=== PATIENT | male | born 1940 | race Caucasian/White ===

== ENCOUNTER 2017-09-10 11:47 | Inpatient (IN) | payer MEDICARE, OTHER ==
[2017-09-10] MEDS ORDERED: predniSONE 10 MG TAB PO PRN (14:13)
--- NOTE | 2017-09-10 15:02 | XR ---
EXAMINATION TYPE: XR chest 2V DATE OF EXAM: 09/10/2017 COMPARISON: 07/31/2016 HISTORY: Shortness of breath TECHNIQUE: Frontal and lateral views of the chest are obtained. FINDINGS: The heart is enlarged with mediastinal clips and midline sternotomy wires present. No foca l consolidation, pleural effusion or pneumothorax is appreciated. No pulmonary vascular congestion. R ight humeral rotator cuff repair anchors are seen. Mild degenerative changes of the thoracic spine ar e noted. IMPRESSION: No acute cardiopulmonary process.
[2017-09-10] MEDS: CARBIDOPA-LEVODOPA 25-100 MG 1 EACH TAB PO SCH ×2 (15:04→20:24)
[2017-09-10] MEDS ORDERED: IPRATROPIUM-ALBUTEROL 3 ML NEB INHALATION PRN (16:16)
[2017-09-10] MEDS ORDERED: Potassium Replacement Protocol 1 EACH MISC MISCELLANE PRN (16:17)
[2017-09-10 16:23] LABS: Glucose,Whole Blood 149 mg/dL (75-99)
[2017-09-10] MEDS ORDERED: FUROSEMIDE 10 MG/ML 4 ML VIAL IV STA (16:55)
--- NOTE | 2017-09-10 17:00 | P.HPIM ---
History of Present Illness H&P Date: 09/10/17 Chief Complaint: Shortness of breath Patient is a 77-year-old male with a known history of hypertension, diabetes type 2, Parkinson's disease with iovodopa pump, coronary artery disease with history of bypass graft 5 present in 1988, atrial fibrillation on anticoagulation with Coumadin INR level II.7 was initially presented to [facility] with complaints of worsening short of breath since last night. Patient also having chest discomfort. No associated radiation. No nausea vomiting. Patient is a poor historian due to underlying Parkinson's disease. Most of the history was taken from the medical records with bedside with his daughter. Patient apparently having this short of breath exertional for the past 2 months and was seen by Dr. Hilliard. Patient had stress test done 2 weeks ago which was normal as per his daughter. Pt. had chest x-ray at [facility] showed mild vascular congestion and a dose of IV Lasix was given. Patient was found to have elevated troponin level 2.8 and also bradycardia with heart rate in 40s. Patient was subsequently transferred to [facility] for further evaluation by cardiology. Currently patient denied any chest pain. Repeat troponin increased to 5.6 and cardiology has been notified. Patient's INR is therapeutic. No fever no chills. No recent illnesses. EKG showed atrial fibrillation. Nonspecific ST-T wave changes. Review of Systems Constitutional: Patient denies any fever or chills . No generalized weakness or weight loss. Abdomen: Patient denied nausea vomiting and diarrhea and abdominal pain. Cardiovascular: Patient does have chest discomfort and shortness of breath. No leg swelling. Respiratory: patient denied any cough is from production. No shortness of breath Neurologic: Patient denied any numbness or tingling headache. Musculoskeletal: Patient denies any complaints of joint swelling or deformity. Skin: Negative Psychiatric: Negative Endocrine: No heat or cold intolerance. No recent weight gain. Genitourinary: No dysuria or hematuria. All other 14 point ROS negative except the above Past Medical History Past Medical History: Atrial Fibrillation, Coronary Artery Disease (CAD), Cancer , CVA/TIA, Diabetes Mellitus, GERD/Reflux, Hypertension, Musculoskeletal Disorder, Neurologic Disorder, Osteoarthritis (OA), Skin Disorder, Sleep Apnea/ CPAP/BIPAP, Syncope Additional Past Medical History / Comment(s): Stress test 2 weeks ago negative, parkinson's disease with levadopa pump, NIDDM type II, "leaky" heart valve, recently having some difficulty with swallowing-ENT thought due to breathing difficulties-pt has had esophageal dilations in the past, SOB past couple months worse lately, TIA in 2003, skin cancer with multiple removals, AINSLEY with CPAP used in the past, diverticular disease, benign colon polyps, arthritis bilateral knees and hips, UTIs, syncopal episodes. History of Any Multi-Drug Resistant Organisms: None Reported Past Surgical History: Coronary Bypass/CABG, Heart Catheterization, Joint Replacement, Orthopedic Surgery Additional Past Surgical History / Comment(s): 5vessel bypass 1988 at [facility] in [place]; 2008 cardiac cath tx medically, bilateral knee replacements with L knee revision, bilateral rotator cuff repair, colonoscopy with benign polypectomy, EGD with dilation, bilateral cataract removal with lens implants. Past Anesthesia/Blood Transfusion Reactions: No Reported Reaction Smoking Status: Never smoker - Past Family History Father Family Medical History: Myocardial Infarction ([place]) Additional Family Medical History / Comment(s): FATHER PASSED AT 38 YR. Medications and Allergies Home Medications Medication Instructions Recorded Confirmed Type Aspirin 81 mg PO MOWEFR 05/04/14 09/10/17 History Entacapone [Comtan] 200 mg PO TID 05/04/14 09/10/17 History Isosorbide Mononitrate ER [Imdur] 30 mg PO QAM 05/04/14 09/10/17 History Ranitidine HCl [Zantac] 150 mg PO BID 05/04/14 09/10/17 History Warfarin [Coumadin] 5 mg PO HS 05/04/14 09/10/17 History metFORMIN HCL 1,000 mg PO BID 05/04/14 09/10/17 History Ubidecarenone [Co Q-10] 300 mg PO QAM 07/19/16 09/10/17 History Black Seed Oil 1 cap PO BID 09/10/17 09/10/17 History Carbidopa/Levodopa [Duopa 4.63 1 dose PEG/G-TUBE CONTINUOUS 09/10/17 09/10/17 History mg-20 mg/ml Susp] Cholecalciferol [Vitamin D3] 5,000 unit PO DAILY 09/10/17 09/10/17 History Donepezil [Aricept] 10 mg PO HS 09/10/17 09/10/17 History Lisinopril [Prinivil] 10 mg PO DAILY 09/10/17 09/10/17 History Loratadine [Claritin] 10 mg PO DAILY 09/10/17 09/10/17 History predniSONE 20 mg PO Q48H 09/10/17 09/10/17 History Allergies Allergy/AdvReac Type Severity Reaction Status Date / Time diphenhydramine HCl AdvReac Hallucinati Verified 09/10/17 14:14 [From Benadryl] ons Physical Exam Vitals: Vital Signs Temp Pulse Resp BP Pulse Ox 09/10/17 16:00 98.5 F 48 L 21 126/62 96 Intake and Output 09/10/17 09/10/17 09/10/17 06:59 14:59 22:59 Intake Total 0 Balance 0 Intake: Oral 0 Other: # Voids 0 Weight 89.494 kg Patient Weight 09/11/17 06:59 Weight 89.494 kg PHYSICAL EXAMINATION: Patient is lying in the bed comfortably, no acute distress, awake alert and oriented.. HEENT: Normocephalic. Neck is supple. Pupils reactive. Nostrils clear. Oral cavity is moist. Ears reveal no drainage. Neck reveals no JVD, carotid bruits, or thyromegaly. CHEST EXAMINATION: Trachea is central. Symmetrical expansion. Lung mayes clear to auscultation and percussion. Diminished air entry basally CARDIAC: Normal S1, S2 with no gallops. No murmurs . Irregularly irregular ABDOMEN: Soft. Bowel sounds normal. No organomegaly. No abdominal bruits. Pt. does have levodopa pump Extremities: 1+ edema. No clubbing or cyanosis Neurologically awake, alert, oriented x3 with well-coordinated movements. No focal deficits noted Skin: No rash or skin lesions. Psychiatric: Operative. Nonsuicidal Musculoskeletal: No joint swelling or deformity. Normal range of motion. Results Labs: Abnormal Lab Results - Last 24 Hours (Table) 09/10/17 09/10/17 Range/Units 15:12 16:22 POC Glucose (mg/dL) 149 H (75-99) mg/dL Troponin I 5.680 H* (0.000-0.034) ng/mL Thrombosis Risk Factor Assmnt - Choose All That Apply Any of the Below Risk Factors Present?: Yes Each Factor Represents 1 point: Acute CA, Obesity (BMI >25) Other Risk Factors: Yes Each Risk Factor Represents 2 Points: Malignancy Each Risk Factor Represents 3 Points: Age 75 years or older Other congenital or acquired thrombophilia - If yes, enter type in comment: No Thrombosis Risk Factor Assessment Total Risk Factor Score: 7 Thrombosis Risk Factor Assessment Level: High Risk Assessment and Plan Assessment: #1 acute non-ST elevated CA with elevated troponin level #2 worsening shortness of breath due to acute CHF. Ejection fraction unknown. Elevated BNP 3463 #3 atrial fibrillation on anticoagulation with Coumadin INR 2.7 #4 history of coronary artery disease status post coronary artery bypass graft in 1988 5 is #5 diabetes type 2 [id number] #6 hypertension 7#Parkinson's disease #8 osteoarthritis #9 artery for sleep apnea on CPAP. #10 history of TIA Plan: Patient will be continued on telemetry monitoring and cardiology has been consulted for elevated troponin level. Patient has recent stress test was negative as per his daughter. Patient will be given a dose of Lasix IV and continue with home medications. Serial EKGs and troponins. Continue the home medications and blood pressure and blood sugar management. Further recommendations as per cardiology evaluation. Prognosis is guarded with multiple medical problems and comorbid conditions. Time with Patient: Greater than 30
[2017-09-10] MEDS: ENTACAPONE 200 MG TAB PO SCH ×2 (17:08→20:28)
[2017-09-10] MEDS: metFORMIN 500 MG TAB PO SCH (17:09)
[2017-09-10] MEDS: INSULIN LISPRO (humaLOG) 300 UNIT/3 ML VIAL SQ SCH ×2 (17:09→21:37)
[2017-09-10 18:47] LABS: Basophils % (A) 0 %; CH 31.8; CHCM 33.8; Eosinophils % (A) 0 %; HCT 38.9 % (39.0-53.0); HDW 3.11; HGB 12.9 gm/dL (13.0-17.5); Luc # (Auto) 0.18; Luc % (Auto) 2; Lymphocytes # (A) 0.5 k/uL (1.0-4.8); Lymphocytes % (A) 6 %; MCH 31.5 pg (25.0-35.0); MCHC 33.2 g/dL (31.0-37.0); MCV 94.8 fL (80.0-100.0); Mean Platelet Volume 8.9; Monocytes # (A) 0.8 k/uL (0-1.0); Monocytes % (A) 8 %; Neutrophils # (A) 7.6 k/uL (1.3-7.7); Neutrophils % (A) 83 %; RBC 4.11 m/uL (4.30-5.90); RDW 15.3 % (11.5-15.5); WBC 9.1 k/uL (3.8-10.6); WBC (Perox) 9.51
[2017-09-10] MEDS ORDERED: HEPARIN SODIUM,PORCINE 5,000 UNIT/ML 1 ML VIAL IV PRN (18:54)
[2017-09-10] MEDS ORDERED: HEPARIN SODIUM,PORCINE 5,000 UNIT/ML 1 ML VIAL IV ONE (18:54)
[2017-09-10] MEDS ORDERED: HEPARIN SODIUM,PORCINE/D5W PMX 25,000 UNIT in DEXTROSE/WATER 1 500ML.BAG IV SCH (19:00)
[2017-09-10 19:24] LABS: INR 2.5 (<1.2); Prothrombin Time 24.5 sec (9.0-12.0)
[2017-09-10] MEDS: FUROSEMIDE 10 MG/ML 2 ML VIAL IV SCH (20:27)
[2017-09-10] MEDS: FAMOTIDINE 20 MG TAB PO SCH (20:28)
[2017-09-10] MEDS: DONEPEZIL 10 MG TAB PO SCH (20:28)
[2017-09-10] MEDS ORDERED: WARFARIN 5 MG TAB PO SCH (21:00)
[2017-09-10 21:09] LABS: Glucose,Whole Blood 143 mg/dL (75-99)
[2017-09-10 21:14] LABS: Hemoglobin A1C 6.8 % (4.2-6.1)
[2017-09-10] MEDS: IPRATROPIUM-ALBUTEROL 3 ML NEB INHALATION SCH (21:36)
[2017-09-11] MEDS ORDERED: TEMAZEPAM 7.5 MG CAP PO ONE (00:32)
[2017-09-11 06:12] LABS: Glucose,Whole Blood 199 mg/dL (75-99)
[2017-09-11 06:15] LABS: Anisocytosis Slight; Basophils % (A) 0 %; CH 32.5; CHCM 33.6; Eosinophils % (A) 0 %; HCT 45.4 % (39.0-53.0); HDW 2.99; HGB 14.5 gm/dL (13.0-17.5); Luc # (Auto) 0.19; Luc % (Auto) 2; Lymphocytes # (A) 1.3 k/uL (1.0-4.8); Lymphocytes % (A) 12 %; MCHC 31.8 g/dL (31.0-37.0); MCV 97.5 fL (80.0-100.0); Macrocytosis Slight; Mean Platelet Volume 9.2; Monocytes # (A) 0.7 k/uL (0-1.0); Monocytes % (A) 7 %; Neutrophils # (A) 8.2 k/uL (1.3-7.7); Neutrophils % (A) 79 %; RBC 4.66 m/uL (4.30-5.90); RDW 16.5 % (11.5-15.5); WBC 10.4 k/uL (3.8-10.6); WBC (Perox) 10.49
[2017-09-11 06:35] LABS: Anion Gap 14 mmol/L; Blood Urea Nitrogen 31 mg/dL (9-20); Calcium 9.4 mg/dL (8.4-10.2); Carbon Dioxide 18 mmol/L (22-30); Chloride 106 mmol/L (98-107); Glucose 194 mg/dL (74-99); Magnesium 1.5 mg/dL (1.6-2.3); Non-African American GFR(MDRD) >60 (>60 ml/min/1.73 sqM); Potassium 4.4 mmol/L (3.5-5.1); Sodium 138 mmol/L (137-145)
[2017-09-11 06:45] LABS: INR 2.2 (<1.2); Prothrombin Time 21.2 sec (9.0-12.0)
[2017-09-11] MEDS: INSULIN LISPRO (humaLOG) 300 UNIT/3 ML VIAL SQ SCH ×4 (07:07→21:13)
[2017-09-11] MEDS: CARBIDOPA-LEVODOPA 25-100 MG 1 EACH TAB PO SCH ×3 (07:46→20:37)
[2017-09-11] MEDS: metFORMIN 500 MG TAB PO SCH (07:47)
[2017-09-11] MEDS: FUROSEMIDE 10 MG/ML 2 ML VIAL IV SCH ×2 (08:02→20:29)
[2017-09-11] MEDS: ASPIRIN 81 MG PO SCH (08:02)
[2017-09-11] MEDS: FAMOTIDINE 20 MG TAB PO SCH ×2 (08:02→20:29)
[2017-09-11] MEDS: ISOSORBIDE MONONITRATE ER 30 MG TAB.ER.24H PO SCH (08:02)
[2017-09-11] MEDS: ENTACAPONE 200 MG TAB PO SCH ×3 (08:02→20:30)
[2017-09-11] MEDS: LISINOPRIL 10 MG TAB PO SCH (08:03)
[2017-09-11] MEDS: IPRATROPIUM-ALBUTEROL 3 ML NEB INHALATION SCH ×4 (09:03→19:09)
--- NOTE | 2017-09-11 09:59 | P.CRDCN ---
History of Present Illness Consult date: 09/11/17 Requesting physician: Rachid Parks Reason for Consult (text): nstemi Consult reason: shortness of breath Chief complaint: Worsening shortness of breath and chest pressure History of present illness: This is a pleasant 77-year-old gentleman who follows with Dr. Hilliard in the office. He has a known history of coronary artery disease with prior bypass surgery, hypertension, hyperlipidemia, diabetes, Parkinson's. Most recent heart catheterization was performed in 2008 which revealed a patent DYKES to the LAD, SVG to the RCA, OM, RI. History also of chronic persistent atrial fibrillation, on Eliquis for anticoagulation. Patient was transferred here from [facility]. History was obtained from the patient as well as his daughter and who are at bedside. Apparently the patient has been complaining of shortness of breath since June, in June it was initially exertional shortness of breath, since then it has progressively worsened, patient also has been experiencing chest heaviness and pressure. Patient did go to see Dr. Hilliard in the office in July because of these symptoms, an echocardiogram with Doppler study was performed which revealed normal left ventricular size and function with mild aortic regurg and moderate aortic stenosis. Patient also underwent a stress test which was reported to be inconclusive as a baseline EKG abnormalities. Ischemic cardiomyopathy with mild to moderate LV systolic dysfunction secondary to prior inferior wall SC. No documentation of reversible ischemia. Patient presented to [facility] on this occasion, because of persistence in worsening shortness of breath with associated chest pressure and heaviness with radiation to the jaw. Positive PND and orthopnea. EKG performed on arrival there showed atrial flutter with ST depression in the anterior leads. Chest x-ray performed there revealed cardiomegaly. Mild pulmonary vascular congestion with mild bilateral peripheral pulmonary edema. Density is identified at the lung bases most likely reflecting atelectasis and small pleural effusions. TSH 1.072 troponin at [place] 2.8 free T4 1 0.0 sodium 136, potassium 4.6, BUN 31, creatinine 1.1. INR 2.7 d-dimer 0.35 WBC 11.2, hemoglobin 13.5, platelet count 177. Patient was transferred [facility] for [facility] care. His EKG on arrival here showed atrial flutter with significant ST depression in the anterior lateral leads. EKG repeated this morning persists to show ST depression. Blood pressure 136/70 with a heart rate in the 50s. Hemoglobin 14.5, white blood cell count 10.4, platelet count 183. INR 2.2. Potassium 4.4, BUN 31, creatinine 1.1. He needs a level I.5. Troponins 5.6 and 7.5. Chest x-ray repeated here did not reveal any acute cardiopulmonary process. At the time of my examination this morning, patient is currently chest pain-free. Past Medical History Past Medical History: Atrial Fibrillation, Coronary Artery Disease (CAD), Cancer , CVA/TIA, Diabetes Mellitus, GERD/Reflux, Hypertension, Musculoskeletal Disorder, Neurologic Disorder, Osteoarthritis (OA), Skin Disorder, Sleep Apnea/ CPAP/BIPAP, Syncope Additional Past Medical History / Comment(s): Stress test 2 weeks ago negative, parkinson's disease with levadopa pump, NIDDM type II, "leaky" heart valve, recently having some difficulty with swallowing-ENT thought due to breathing difficulties-pt has had esophageal dilations in the past, SOB past couple months worse lately, TIA in 2003, skin cancer with multiple removals, AINSLEY with CPAP used in the past, diverticular disease, benign colon polyps, arthritis bilateral knees and hips, UTIs, syncopal episodes. History of Any Multi-Drug Resistant Organisms: None Reported Past Surgical History: Coronary Bypass/CABG, Heart Catheterization, Joint Replacement, Orthopedic Surgery Additional Past Surgical History / Comment(s): 5vessel bypass 1988 at [facility] in [place]; 2008 cardiac cath tx medically, bilateral knee replacements with L knee revision, bilateral rotator cuff repair, colonoscopy with benign polypectomy, EGD with dilation, bilateral cataract removal with lens implants. Past Anesthesia/Blood Transfusion Reactions: No Reported Reaction Smoking Status: Never smoker - Past Family History Father Family Medical History: Myocardial Infarction ([place]) Additional Family Medical History / Comment(s): FATHER PASSED AT 38 YR. Medications and Allergies Home Medications Medication Instructions Recorded Confirmed Type Aspirin 81 mg PO MOWEFR 05/04/14 09/10/17 History Entacapone [Comtan] 200 mg PO TID 05/04/14 09/10/17 History Isosorbide Mononitrate ER [Imdur] 30 mg PO QAM 05/04/14 09/10/17 History Ranitidine HCl [Zantac] 150 mg PO BID 05/04/14 09/10/17 History Warfarin [Coumadin] 5 mg PO HS 05/04/14 09/10/17 History metFORMIN HCL 1,000 mg PO BID 05/04/14 09/10/17 History Ubidecarenone [Co Q-10] 300 mg PO QAM 07/19/16 09/10/17 History Black Seed Oil 1 cap PO BID 09/10/17 09/10/17 History Carbidopa/Levodopa [Duopa 4.63 1 dose PEG/G-TUBE CONTINUOUS 09/10/17 09/10/17 History mg-20 mg/ml Susp] Cholecalciferol [Vitamin D3] 5,000 unit PO DAILY 09/10/17 09/10/17 History Donepezil [Aricept] 10 mg PO HS 09/10/17 09/10/17 History Lisinopril [Prinivil] 10 mg PO DAILY 09/10/17 09/10/17 History Loratadine [Claritin] 10 mg PO DAILY 09/10/17 09/10/17 History predniSONE 20 mg PO Q48H 09/10/17 09/10/17 History Allergies Allergy/AdvReac Type Severity Reaction Status Date / Time diphenhydramine HCl AdvReac Hallucinati Verified 09/10/17 14:14 [From Fay] ons Physical Exam Vitals: Vital Signs Temp Pulse Pulse Resp BP Pulse Ox 09/11/17 04:00 97.3 F L 57 L 19 136/84 95 09/11/17 00:00 97.1 F L 56 L 18 177/81 98 09/10/17 21:46 49 L 09/10/17 21:36 49 L 09/10/17 20:00 97.3 F L 46 L 19 136/71 98 09/10/17 16:00 98.5 F 48 L 21 126/62 96 Intake and Output 09/10/17 09/11/17 09/11/17 22:59 06:59 14:59 Other: Voiding Method Diaper Diaper Incontinent Incontinent # Voids 1 2 Weight 92 kg PHYSICAL EXAMINATION: HEENT: Head is atraumatic, normocephalic. Pupils equal, round. Neck is supple. There elevated jugular venous pressure. HEART EXAMINATION: Heart S1 and S2 irregularly irregular a systolic murmur is heard CHEST EXAMINATION: Lungs reveal rales to amari bases. ABDOMEN: Soft, nontender. Bowel sounds are heard. No organomegaly noted. EXTREMITIES: 2+ peripheral pulses with trace evidence of peripheral edema and no calf tenderness noted. NEUROLOGIC patient is awake, alert and oriented -3. . Results 09/11/17 05:48 09/11/17 05:48 Cardiac Enzymes 09/10/17 09/10/17 Range/Units 15:12 21:10 Troponin I 5.680 H* 7.550 H* (0.000-0.034) ng/mL Coagulation 09/10/17 09/11/17 Range/Units 15:12 05:48 PT 24.5 H 21.2 H (9.0-12.0) sec APTT 35.0 H (22.0-30.0) sec CBC 09/10/17 09/11/17 Range/Units 15:12 05:48 WBC 9.1 10.4 (3.8-10.6) k/uL RBC 4.11 L 4.66 (4.30-5.90) m/uL Hgb 12.9 L 14.5 (13.0-17.5) gm/dL Hct 38.9 L 45.4 (39.0-53.0) % Plt Count 182 183 (150-450) k/uL Comprehensive Metabolic Panel 09/11/17 Range/Units 05:48 Sodium 138 (137-145) mmol/L Potassium 4.4 (3.5-5.1) mmol/L Chloride 106 (98-107) mmol/L Carbon Dioxide 18 L (22-30) mmol/L BUN 31 H (9-20) mg/dL Creatinine 1.10 (0.66-1.25) mg/dL Glucose 194 H (74-99) mg/dL Calcium 9.4 (8.4-10.2) mg/dL Current Medications Generic Name Dose Route Start Last Admin Trade Name Freq PRN Reason Stop Dose Admin Albuterol/Ipratropium 3 ml 09/10/17 20:00 09/11/17 09:03 Duoneb 0.5 Mg-3 Mg/3 Ml Soln INHALATION Not Given RT-QID TERE Albuterol/Ipratropium 3 ml 09/10/17 16:16 Duoneb 0.5 Mg-3 Mg/3 Ml Soln INHALATION RT-Q2H PRN Shortness Of Breath Or Wheezing Aspirin 81 mg 09/11/17 09:00 09/11/17 08:02 Aspirin PO 81 mg MOWEFR TERE Administration Carbidopa/Levodopa 2 each 09/10/17 16:00 09/11/17 07:46 Sinemet 25-100 PO Not Given TID TERE Donepezil HCl 10 mg 09/10/17 21:00 09/10/17 20:28 Aricept PO 10 mg HS TERE Administration Entacapone 200 mg 09/10/17 16:00 09/11/17 08:02 Comtan PO 200 mg TID TERE Administration Famotidine 20 mg 09/10/17 21:00 09/11/17 08:02 Pepcid PO 20 mg BID TERE Administration Furosemide 20 mg 09/10/17 21:00 09/11/17 08:02 Lasix IV 20 mg Q12HR TERE Administration Insulin Human Lispro 0 unit 09/10/17 17:30 09/11/17 07:07 Humalog SQ 2 unit ACHS TERE Administration Protocol Isosorbide Mononitrate 30 mg 09/11/17 09:00 09/11/17 08:02 Imdur PO 30 mg QAM TERE Administration Lisinopril 10 mg 09/11/17 09:00 09/11/17 08:03 Zestril PO 10 mg DAILY TERE Administration Metformin HCl 1,000 mg 09/10/17 17:30 09/11/17 07:47 Glucophage PO Not Given AC-BID TERE Miscellaneous Information 1 each 09/10/17 16:17 Potassium Per Protocol MISCELLANE DAILY PRN Per Protocol Protocol Prednisone 10 mg 09/10/17 14:13 PO DAILY PRN flare up Intake and Output 09/10/17 09/11/17 09/11/17 22:59 06:59 14:59 Other: Voiding Method Diaper Diaper Incontinent Incontinent # Voids 1 2 Weight 92 kg 09/11/17 05:48 09/11/17 05:48 EKG Interpretations (text) EKG shows atrial flutter with anterior lateral ST depression Assessment and Plan Plan: Assessment and plan #1 non-Q-wave myocardial infarction, troponins 2.7, 5.6, 7.5. EKG shows atrial fibrillation with anterior lateral ST depression right bundle branch block pattern #2 chronic persistent atrial fibrillation/flutter, on Coumadin for anticoagulation, INR 2.2. #3 known history of coronary artery disease with prior bypass surgery, patient did have a stress test performed one month ago in the office which did not reveal any evidence of reversible ischemia. Echocardiogram with Doppler study was also performed in June of this year which revealed a normal left ventricular systolic function with moderate concentric LVH moderate aortic stenosis. #4 hypertension #5 diabetes #6 hyperlipidemia #7 Parkinson's #8 hypomagnesemia, magnesium level I.5. #9 congestive heart failure, LV function was normal in June of this year, diastolic acute on chronic. #10 moderate aortic stenosis. Plan We will obtain a stat echocardiogram with Doppler study as well as a BNP level. Give the patient 20 mg of IV Lasix now. Hold the Coumadin. Continue aspirin , Imdur, lisinopril, patient has not been on a beta robert because of bradycardia. Patient was seen in consultation by Dr. VC Ramos and advised to undergo cardiac catheterization. The risks and benefits were explained to the patient in detail and he is willing to proceed DNP note has been reviewed, I agree with a documented findings and plan of care. Patient was seen and examined.
[2017-09-11] MEDS ORDERED: ALPRAZolam 0.5 MG TAB PO PRN (10:03)
[2017-09-11] MEDS ORDERED: ASPIRIN 325 MG TAB PO STA (10:03)
[2017-09-11] MEDS ORDERED: SODIUM CHLORIDE 0.9% 1,000 ML in EMPTY BAG 1 BAG IV ONE (10:03)
[2017-09-11] MEDS ORDERED: ALPRAZolam 0.25 MG TAB PO PRN (10:03)
[2017-09-11] MEDS ORDERED: NITROGLYCERIN SL TABS 0.4 MG TAB SUBLINGUAL PRN ×2 (10:03→12:58)
[2017-09-11] MEDS ORDERED: ATORVASTATIN 80 MG TAB PO STA (10:07)
[2017-09-11] MEDS ORDERED: MIDAZOLAM 2 MG/2 ML VIAL ONE (11:01)
[2017-09-11] MEDS ORDERED: LIDOCAINE 2% INJ 20 MG/ML SQ ONE (11:07)
[2017-09-11] MEDS ORDERED: IV FLUID CONTINUATION 700 ML IV ONE (11:08)
[2017-09-11] MEDS ORDERED: BIVALIRUDIN BOLUS 250 MG/50 ML IV ONE (11:47)
[2017-09-11] MEDS ORDERED: BIVALIRUDIN 250 MG in SODIUM CHLORIDE 0.9% 40 ML IV ONE (11:48)
--- NOTE | 2017-09-11 12:17 | ECHOF ---
Referral Reason:assess lvf MEASUREMENTS -------- HEIGHT: 172.7 cm WEIGHT: 91.6 kg BP: 137/73 RVIDd: 3.7 cm (< 3.3) IVSd: 1.6 cm (0.6 - 1.1) LVIDd: 4.9 cm (3.9 - 5.3) LVPWd: 1.4 cm (0.6 - 1.1) IVSs: 1.9 cm LVIDs: 4.1 cm LVPWs: 2.1 cm LA Diam: 5.2 cm (2.7 - 3.8) LAESV Index (A-L): 38.69 ml/m Ao Diam: 3.7 cm (2.0 - 3.7) AV Cusp: 1.1 cm (1.5 - 2.6) MV EXCURSION: 12.842 mm (> 18.000) MV EF SLOPE: 72 mm/s (70 - 150) EPSS: 1.0 cm MV E Aamir: 1.24 m/s MV DecT: 176 ms MV A Aamir: 0.35 m/s MV E/A Ratio: 3.57 AV maxP.66 mmHg AV meanP.12 mmHg RAP: 5.00 mmHg RVSP: 58.20 mmHg FINDINGS -------- This was a technically adequate study. The left ventricular size is normal. There is moderate concentric left ventricular hypertrophy. Overall left ventricular systolic function is mildly impaired with, an EF between 45 - 50 %. Basal lateral LV wall motion is hypokinetic. Basal inferior LV wall motion is hypokinetic. The right ventricle is mildly enlarged. LA is moderately dilated 34-39 ml/m2 The right atrium is normal in size. 1.5mg of Definity was utilized for enhancement of images There is mild to moderate aortic valve sclerosis. Trace to mild aortic regurgitation. There is mild aortic stenosis present. Peak/mean gradient across the Aortic Valve is 27.66mmHg / 13.12mmHg. The mitral valve leaflets are mildly thickened. Mild mitral annular calcification present. Mild mitral regurgitation is present. Mild tricuspid regurgitation present. There is severe pulmonary hypertension. The right ventricular systolic pressure, as measured by Doppler, is 58.20mmHg. Trace/mild (physiologic) pulmonic regurgitation. The aortic root is dilated measuring 3.7cm. There is a trivial pericardial effusion present. CONCLUSIONS -------- 1. This was a technically adequate study. 2. 1.5mg of Definity was utilized for enhancement of images 3. There is mild to moderate aortic valve sclerosis. 4. Trace to mild aortic regurgitation. 5. There is mild aortic stenosis present. 6. Peak/mean gradient across the Aortic Valve is 27.66mmHg / 13.12mmHg. 7. The mitral valve leaflets are mildly thickened. 8. Mild mitral annular calcification present. 9. Mild mitral regurgitation is present. 10. Mild tricuspid regurgitation present. 11. There is severe pulmonary hypertension. 12. The left ventricular size is normal. 13. The right ventricular systolic pressure, as measured by Doppler, is 58.20mmHg. 14. Trace/mild (physiologic) pulmonic regurgitation. 15. The aortic root is dilated measuring 3.7cm. 16. There is a trivial pericardial effusion present. 17. There is moderate concentric left ventricular hypertrophy. 18. Overall left ventricular systolic function is mildly impaired with, an EF between 45 - 50 %. 19. Basal lateral LV wall motion is hypokinetic. 20. Basal inferior LV wall motion is hypokinetic. 21. The right ventricle is mildly enlarged. 22. LA is moderately dilated 34-39 ml/m2 23. The right atrium is normal in size. PSYCHOMETRICIAN: Josefa Santiago RDCS
[2017-09-11] MEDS ORDERED: niCARdipine 25 MG/10 ML VIAL ONE (12:19)
[2017-09-11] MEDS: niCARdipine Syringe (1,000 mcg/10 mL) INTRACORON ONE ×2 (12:22→12:30)
[2017-09-11] MEDS ORDERED: CLOPIDOGREL 75 MG TAB ONE ×2 (12:25→12:26)
[2017-09-11] MEDS ORDERED: CLOPIDOGREL 75 MG TAB PO ONE (12:29)
[2017-09-11] MEDS ORDERED: IOHEXOL 350 MG/ML 125ML BOTTLE INJ ONE (12:37)
--- NOTE | 2017-09-11 12:43 | CC ---
CARDIAC CATHETERIZATION REPORT INDICATION: [id number] elevation [place]. PROCEDURE NOTE: After obtaining informed consent, left heart catheterization, coronary angiogram and selective injection of the bypass graft was performed via the right femoral artery using standard Lala catheters. The patient has complex multiple medical problems including chronic atrial flutter and is on Coumadin. INR on admission was 2.2. However we decided to proceed with cardiac catheterization given the worsening troponins and congestive heart failure. The patient and the family understood the risk of bleeding. The patient has parkinsonism too. He has known CAD and DYKES to LAD, venous graft to right, OM and ramus intermedius. FINDINGS: 1. HEMODYNAMICS: Left ventricular end-diastolic pressure is 14 to 16 mm. There is no significant gradient across the aortic valve. 2. LEFT VENTRICULOGRAM: Left ventriculogram is not performed. 3. ANGIOGRAPHIC DATA:. 4. Left main coronary artery: Left main coronary artery appears totally occluded at its origin. Right coronary artery is totally occluded in the proximal part. SELECTIVE INJECTION OF THE BYPASS GRAFT 1. DYKES to LAD: DYKES was injected subselectively. It is patent. Proximal and distal anastomotic sites appear patent and the [place] vessel has mild disease. 2. Venous graft to the right coronary artery appears patent. Proximal and distal anastomotic sites are free of disease. The body of the graft appears diffusely diseased but no focal stenotic areas. The PDA and PLV appear patent and are giving collaterals probably to diagonal system. 3. Venous graft to the ramus intermedius is patent. There is a 95% stenosis proximally. 4. Venous graft to the OM branch is totally occluded in the proximal part. CONCLUSIONS: 1. [place] 3-vessel coronary artery disease with occluded left main. 2. Patent DYKES to the LAD. 3. Patent DYKES to the RCA. 4. Acutely occluded venous graft to the OM. 5. Patent venous graft to the ramus with a 95% focal stenosis. PLAN: Angiographic data was reviewed by Dr. Alberta Valdovinos, the on-call elevator constructor helper, who will first attempt angioplasty of the occluded venous graft and the angioplasty of the venous graft to the ramus. MMODL / IJN: [id number] /
[2017-09-11] MEDS ORDERED: ATROPINE SULFATE 0.1 MG/ML 10ML SYRINGE IV PRN (12:58)
[2017-09-11] MEDS ORDERED: RX INFO: IV CONTRAST WAS GIVEN 1 EACH MISC MISCELLANE PRN (12:58)
[2017-09-11] MEDS ORDERED: MAG HYDROX/AL HYDROX/SIMETH 30 ML CUP PO PRN (12:58)
[2017-09-11] MEDS ORDERED: CARBIDOPA PEG/G-TUBE SCH (13:00)
[2017-09-11] MEDS ORDERED: LEVODOPA PEG/G-TUBE SCH (13:00)
--- NOTE | 2017-09-11 14:34 | PN ---
PROGRESS NOTE Mr. Russell is in atrial fibrillation. The ventricular rate is quite slow. He has a rate sometimes in the mid 40s, but he is not symptomatic and previously Dr. Hilliard discussed with him regarding a pacemaker and he was reluctant to have any. He is not symptomatic, but given his significant bradycardia. I am recommended that he should not be on any beta blockers, even though he has had CAD. His LV function is fairly well preserved. We will therefore not give him any beta blockers in view of significant bradycardia with underlying atrial fibrillation and probable sick sinus syndrome. MMODL / IJN: [id number] /
--- NOTE | 2017-09-11 14:49 | PTCA ---
PERCUTANEOUSTRANS CORORONARY ANGIOGRAPHY DATE OF SERVICE: 09/11/2017. PROCEDURE: 1. PTCA of saphenous vein graft to the diagonal branch of LAD. 2. Stenting of saphenous vein graft to the obtuse marginal branch of circumflex. PERFORMED BY: Dr. Alicia Valdovinos. CLINICAL INFORMATION: Mrs. Prashant Russell is a 77-year-old gentleman with a known history of aortocoronary bypass surgery that was performed more than 25 years ago with a DYKES to LAD, vein graft to the RCA, obtuse marginal, and probably the diagonal/ramus branch. In 2008 these grafts were patent with moderate disease in the ramus graft. He was advised medical therapy. Did well, but came into the hospital with symptoms of chest discomfort and non-ST elevation [place]. Coronary angiography by Dr. Hilliard revealed the vein graft to the RCA, DYKES to LAD, was widely patent. The graft to the diagonal/ramus was totally occluded, seen as a stump and the graft to the obtuse marginal had a 99% stenosis with sluggish flow. He was advised intervention. I reviewed the angiograms and noted that the graft to the ramus was probably a chronic occlusion with significant collaterals coming from the RCA graft. However, I suggested that I would attempt this as well and then perform intervention of the vein graft to the obtuse marginal. With this explanation, I proceeded to perform the procedure. PROCEDURE NOTE: The existing 6-Sinhala introducer in the right femoral artery was used to perform the procedure. I used initially an ART 3.5 catheter and with this I was able to cannulate the vein graft to the diagonal/ramus. I advanced a Whisper wire and with some difficulty, I was able to cross the total occlusion and it went back into the diagonal branch. However, in spite of at least 3 or 4 inflations, I could not advance the balloon any more than a few cm beyond the total occlusion. It appears that this was a chronic total occlusion without much antegrade flow. This was therefore unsuccessful angioplasty and then I turned my attention to the vein graft to the obtuse marginal which was a significant lesion. I changed the guide catheter to a hockey-stick guide catheter and with this I cannulated the vein graft to the obtuse marginal. I used a filter wire, with the filter wire, which was somewhat bulky, I could not cross the lesion. The wire kept buckling back. After some attempts, I gave up and used a new Whisper wire. With this I crossed the lesion and without predilatation I went ahead and deployed an 8 mm long 3.25 caliber Xience stent at 14 atmospheres. Patient had mild jaw discomfort/chest discomfort, but no new EKG changes. He received Angiomax bolus and infusion as per protocol and 600 mg of Plavix was given. I then noted that the brisk flow was there, but there was a haziness in the area. I addressed this with a 3.5 caliber NC Trek balloon of 12 mm length and gave a 45 second inflation to the same area. The inflation was given at 13 atmospheres. Excellent angiographic result was achieved. I also gave some nicardipine intracoronary. The patient tolerated procedure well. Excellent angiographic result was achieved without complication. The sheath was taken out and an Angio-Seal device used to secure hemostasis. Excellent angiographic result without complication was noted. Results were discussed with the patient and family. Moderate conscious sedation was given with Versed and Benadryl combination for a total duration of 92 minutes. I expect the patient to be discharged in the next 48 hours. Results were discussed with the patient and family. The patient has underlying chronic atrial fibrillation. He is on Coumadin. He will be on aspirin, Plavix and Coumadin initially and we will then make adjustments as an outpatient. MMODL / IJN: [id number] /
[2017-09-11] MEDS: SODIUM CHLORIDE 0.9% 1,000 ML IV SCH ×2 (14:54→20:30)
[2017-09-11] MEDS: predniSONE 20 MG TAB PO SCH (14:54)
[2017-09-11 16:31] LABS: Glucose,Whole Blood 167 mg/dL (75-99)
[2017-09-11] MEDS: traMADol 50 MG TAB PO PRN (17:34)
[2017-09-11] MEDS: ATORVASTATIN 40 MG TAB PO SCH (20:29)
[2017-09-11] MEDS: DONEPEZIL 10 MG TAB PO SCH (20:29)
[2017-09-11 21:10] LABS: Glucose,Whole Blood 227 mg/dL (75-99)
--- NOTE | 2017-09-12 00:14 | P.PN ---
Subjective Progress Note Date: 09/11/17 Principal diagnosis: Shortness of breath Patient is a 77-year-old male with a known history of hypertension, diabetes type 2, Parkinson's disease with iovodopa pump, coronary artery disease with history of bypass graft 5 present in 1988, atrial fibrillation on anticoagulation with Coumadin INR level II.7 was initially presented to [facility] with complaints of worsening short of breath since last night. Patient also having chest discomfort. No associated radiation. No nausea vomiting. Patient is a poor historian due to underlying Parkinson's disease. Most of the history was taken from the medical records with bedside with his daughter. Patient apparently having this short of breath exertional for the past 2 months and was seen by Dr. Hilliard. Patient had stress test done 2 weeks ago which was normal as per his daughter. Pt. had chest x-ray at [facility] showed mild vascular congestion and a dose of IV Lasix was given. Patient was found to have elevated troponin level 2.8 and also bradycardia with heart rate in 40s. Patient was subsequently transferred to [facility] for further evaluation by cardiology. Currently patient denied any chest pain. Repeat troponin increased to 5.6 and cardiology has been notified. Patient's INR is therapeutic. No fever no chills. No recent illnesses. EKG showed atrial fibrillation. Nonspecific ST-T wave changes. 09/11/2017 Patient underwent cardiac catheterization and stenting of saphenous vein graft. Patient currently denied any chest pain. Patient is bradycardic. Beta blockers were not started due to bradycardia. No complaints of worsening short of breath. Current medications reviewed. Objective - Vital Signs Vital signs: Vital Signs Temp 98.5 F 09/11/17 16:00 Pulse 55 L 09/11/17 19:19 Resp 20 09/11/17 16:43 BP 149/68 09/11/17 16:43 Pulse Ox 98 09/11/17 16:43 Intake & Output 09/11/17 09/11/17 09/12/17 06:59 18:59 06:59 Intake Total 90 Output Total 100 Balance -10 Weight 92 kg Intake: IV 90 Output: Urine 100 Other: Voiding Method Diaper Diaper Incontinent Incontinent # Voids 2 1 # Bowel Movements 1 - Exam Patient is lying in the bed comfortably, no acute distress, awake alert and oriented.. HEENT: Normocephalic. Neck is supple. Pupils reactive. Nostrils clear. Oral cavity is moist. Ears reveal no drainage. Neck reveals no JVD, carotid bruits, or thyromegaly. CHEST EXAMINATION: Trachea is central. Symmetrical expansion. Lung mayes clear to auscultation and percussion. Diminished air entry basally CARDIAC: Normal S1, S2 with no gallops. No murmurs . Irregularly irregular ABDOMEN: Soft. Bowel sounds normal. No organomegaly. No abdominal bruits. Pt. does have levodopa pump Extremities: 1+ edema. No clubbing or cyanosis Neurologically awake, alert, oriented x3 with well-coordinated movements. No focal deficits noted Skin: No rash or skin lesions. Psychiatric: Operative. Nonsuicidal Musculoskeletal: No joint swelling or deformity. Normal range of motion. - Labs CBC & Chem 7: 09/11/17 05:48 09/11/17 05:48 Labs: Abnormal Lab Results - Last 24 Hours (Table) 09/10/17 09/11/17 09/11/17 Range/Units 21:10 05:48 05:48 RDW 16.5 H (11.5-15.5) % Neutrophils # 8.2 H (1.3-7.7) k/uL PT (9.0-12.0) sec INR (<1.2) Carbon Dioxide 18 L (22-30) mmol/L BUN 31 H (9-20) mg/dL Glucose 194 H (74-99) mg/dL POC Glucose (mg/dL) (75-99) mg/dL Magnesium 1.5 L (1.6-2.3) mg/dL Troponin I 7.550 H* (0.000-0.034) ng/mL 09/11/17 09/11/17 09/11/17 Range/Units 05:48 06:11 16:25 RDW (11.5-15.5) % Neutrophils # (1.3-7.7) k/uL PT 21.2 H (9.0-12.0) sec INR 2.2 H (<1.2) Carbon Dioxide (22-30) mmol/L BUN (9-20) mg/dL Glucose (74-99) mg/dL POC Glucose (mg/dL) 199 H 167 H (75-99) mg/dL Magnesium (1.6-2.3) mg/dL Troponin I (0.000-0.034) ng/mL 09/11/17 Range/Units 21:06 RDW (11.5-15.5) % Neutrophils # (1.3-7.7) k/uL PT (9.0-12.0) sec INR (<1.2) Carbon Dioxide (22-30) mmol/L BUN (9-20) mg/dL Glucose (74-99) mg/dL POC Glucose (mg/dL) 227 H (75-99) mg/dL Magnesium (1.6-2.3) mg/dL Troponin I (0.000-0.034) ng/mL Assessment and Plan Assessment: #1 acute non-ST elevated [place] with elevated troponin level #2 worsening shortness of breath due to acute CHF. Ejection fraction preserved. Likely due to acute SC. Elevated BNP 3463 #3 atrial fibrillation on anticoagulation with Coumadin INR 2.7 #4 history of coronary artery disease status post coronary artery bypass graft in 1988 5 is #5 diabetes type 2 [id number] #6 hypertension 7#Parkinson's disease #8 osteoarthritis #9 artery for sleep apnea on CPAP. #10 history of TIA #11 bradycardia is symptomatic. Possible underlying sick sinus Plan: Patient will be continued on aspirin and Plavix and lisinopril. No beta blockers due to bradycardia. Continue with statins. We will change Lasix to by mouth. Will monitor renal function tomorrow. Cardiology is following. Continue with insulin for blood sugar management. Further recommendations as per cardiology evaluation. Prognosis is guarded with multiple medical problems and comorbid conditions. Time with Patient: Greater than 30
[2017-09-12 06:13] LABS: Glucose,Whole Blood 161 mg/dL (75-99)
[2017-09-12] MEDS: INSULIN LISPRO (humaLOG) 300 UNIT/3 ML VIAL SQ SCH ×4 (06:32→21:44)
[2017-09-12 06:40] LABS: Basophils % (A) 0 %; CH 31.4; CHCM 32.8; Eosinophils # (A) 0.1 k/uL (0-0.7); Eosinophils % (A) 1 %; HCT 41.2 % (39.0-53.0); HDW 3.09; HGB 13.2 gm/dL (13.0-17.5); Luc # (Auto) 0.17; Luc % (Auto) 2; Lymphocytes # (A) 1.5 k/uL (1.0-4.8); Lymphocytes % (A) 17 %; MCH 30.9 pg (25.0-35.0); MCHC 32.1 g/dL (31.0-37.0); MCV 96.2 fL (80.0-100.0); Mean Platelet Volume 8.3; Monocytes # (A) 0.6 k/uL (0-1.0); Monocytes % (A) 7 %; Neutrophils # (A) 6.4 k/uL (1.3-7.7); Neutrophils % (A) 73 %; RBC 4.28 m/uL (4.30-5.90); RDW 15.3 % (11.5-15.5); WBC 8.8 k/uL (3.8-10.6); WBC (Perox) 8.35
[2017-09-12 06:47] LABS: INR 1.8 (<1.2); Prothrombin Time 17.2 sec (9.0-12.0)
[2017-09-12 07:12] LABS: Anion Gap 11 mmol/L; Blood Urea Nitrogen 35 mg/dL (9-20); Calcium 8.8 mg/dL (8.4-10.2); Carbon Dioxide 24 mmol/L (22-30); Chloride 104 mmol/L (98-107); Glucose 163 mg/dL (74-99); Non-African American GFR(MDRD) 57 (>60 ml/min/1.73 sqM); Potassium 4.3 mmol/L (3.5-5.1); Sodium 139 mmol/L (137-145)
[2017-09-12] MEDS: IPRATROPIUM-ALBUTEROL 3 ML NEB INHALATION SCH ×4 (08:57→20:06)
[2017-09-12] MEDS ORDERED: NON-FORMULARY DRUG (Ubidecarenone [Co Q-10] 300 MG) PO SCH (09:00)
[2017-09-12 10:05] VITALS: BMI 32.8
[2017-09-12] MEDS: CARBIDOPA-LEVODOPA 25-100 MG 1 EACH TAB PO SCH ×3 (10:27→21:44)
[2017-09-12] MEDS: ISOSORBIDE MONONITRATE ER 30 MG TAB.ER.24H PO SCH (10:38)
[2017-09-12] MEDS: CHOLECALCIFEROL 1,000 UNIT TAB PO SCH (10:38)
[2017-09-12] MEDS: ENTACAPONE 200 MG TAB PO SCH ×3 (10:38→21:44)
[2017-09-12] MEDS: LISINOPRIL 10 MG TAB PO SCH (10:38)
[2017-09-12] MEDS: LORATADINE 10 MG TAB PO SCH (10:38)
[2017-09-12] MEDS: FUROSEMIDE 10 MG/ML 2 ML VIAL IV SCH (10:38)
[2017-09-12] MEDS: FAMOTIDINE 20 MG TAB PO SCH (10:38)
[2017-09-12 11:53] LABS: Glucose,Whole Blood 266 mg/dL (75-99)
[2017-09-12] MEDS: CLOPIDOGREL 75 MG TAB PO SCH (12:49)
[2017-09-12 16:44] LABS: Glucose,Whole Blood 203 mg/dL (75-99)
--- NOTE | 2017-09-12 17:14 | PN ---
PROGRESS NOTE This patient came with a congestive cardiac failure and acute non ST-segment elevation myocardial infarction yesterday. The patient underwent a cardiac catheterization, and otherwise had a stent to the obtuse marginal branch. Patient is feeling better. He is not in acute respiratory distress. The patient's oxygen saturation is 94%. Blood pressure is 132/64 mmHg, heart rate is 50 per minute. Patient has underlying chronic atrial flutter. First and second heart sounds are normal. Lungs examination reveals bilateral rales in the lower one third of the lung mayes. Abdomen is soft. Patient's creatinine is 1.23. INR is 1.8. RECOMMENDATIONS: 1. This patient still has evidence of congestive cardiac failure. The patient has ischemic cardiomyopathy with inferior lateral hypokinesis. The ejection fraction is 35-40%. 2. Chronic atrial flutter. We will continue the patient on IV Lasix 40 mg q.12 hourly and repeat the chest x-ray tomorrow. 3. We will also check it out whether the patient is covered for Xarelto then we will keep the patient on Plavix and Xarelto. MMODL / IJN: [id number] /
[2017-09-12] MEDS: FUROSEMIDE 10 MG/ML 4 ML VIAL IV SCH (17:28)
[2017-09-12] MEDS: WARFARIN 5 MG TAB PO SCH (17:29)
[2017-09-12 21:27] LABS: Glucose,Whole Blood 241 mg/dL (75-99)
[2017-09-12] MEDS: ATORVASTATIN 40 MG TAB PO SCH (21:44)
[2017-09-12] MEDS: DONEPEZIL 10 MG TAB PO SCH (21:44)
--- NOTE | 2017-09-13 00:01 | P.PN ---
Subjective Progress Note Date: 09/12/17 Principal diagnosis: Shortness of breath Patient is a 77-year-old male with a known history of hypertension, diabetes type 2, Parkinson's disease with iovodopa pump, coronary artery disease with history of bypass graft 5 present in 1988, atrial fibrillation on anticoagulation with Coumadin INR level II.7 was initially presented to [facility] with complaints of worsening short of breath since last night. Patient also having chest discomfort. No associated radiation. No nausea vomiting. Patient is a poor historian due to underlying Parkinson's disease. Most of the history was taken from the medical records with bedside with his daughter. Patient apparently having this short of breath exertional for the past 2 months and was seen by Dr. Hilliard. Patient had stress test done 2 weeks ago which was normal as per his daughter. Pt. had chest x-ray at [facility] showed mild vascular congestion and a dose of IV Lasix was given. Patient was found to have elevated troponin level 2.8 and also bradycardia with heart rate in 40s. Patient was subsequently transferred to [facility] for further evaluation by cardiology. Currently patient denied any chest pain. Repeat troponin increased to 5.6 and cardiology has been notified. Patient's INR is therapeutic. No fever no chills. No recent illnesses. EKG showed atrial fibrillation. Nonspecific ST-T wave changes. 09/11/2017 Patient underwent cardiac catheterization and stenting of saphenous vein graft. Patient currently denied any chest pain. Patient is bradycardic. Beta blockers were not started due to bradycardia. No complaints of worsening short of breath. 09/12/2017 Patient is awake and oriented but could not provide any history today. No complaints of chest pain. No acute overnight issues. Current medications reviewed. Objective - Vital Signs Vital signs: Vital Signs Temp 98.2 F 09/12/17 08:00 Pulse 55 L 09/12/17 20:21 Resp 20 09/12/17 16:00 BP 101/57 09/12/17 16:00 Pulse Ox 95 09/12/17 16:00 Intake & Output 09/12/17 09/12/17 09/13/17 06:59 18:59 06:59 Intake Total 733 Output Total 2 100 Balance -2 633 Weight 98 kg 98 kg Intake: Oral 733 Output: Urine 2 100 Other: Voiding Method Diaper Diaper Incontinent Incontinent # Voids 4 - Exam Patient is lying in the bed comfortably, no acute distress, awake alert and oriented.. HEENT: Normocephalic. Neck is supple. Pupils reactive. Nostrils clear. Oral cavity is moist. Ears reveal no drainage. Neck reveals no JVD, carotid bruits, or thyromegaly. CHEST EXAMINATION: Trachea is central. Symmetrical expansion. Lung mayes clear to auscultation and percussion. Diminished air entry basally CARDIAC: Normal S1, S2 with no gallops. No murmurs . Irregularly irregular ABDOMEN: Soft. Bowel sounds normal. No organomegaly. No abdominal bruits. Pt. does have levodopa pump Extremities: 1+ edema. No clubbing or cyanosis Neurologically awake, alert, oriented x3 with well-coordinated movements. No focal deficits noted Skin: No rash or skin lesions. Psychiatric: Operative. Nonsuicidal Musculoskeletal: No joint swelling or deformity. Normal range of motion. - Labs CBC & Chem 7: 09/12/17 06:12 09/12/17 06:12 Labs: Abnormal Lab Results - Last 24 Hours (Table) 09/12/17 09/12/17 09/12/17 Range/Units 06:11 06:12 06:12 RBC 4.28 L (4.30-5.90) m/uL PT 17.2 H (9.0-12.0) sec INR 1.8 H (<1.2) BUN (9-20) mg/dL Glucose (74-99) mg/dL POC Glucose (mg/dL) 161 H (75-99) mg/dL 09/12/17 09/12/17 09/12/17 Range/Units 06:12 11:44 16:41 RBC (4.30-5.90) m/uL PT (9.0-12.0) sec INR (<1.2) BUN 35 H (9-20) mg/dL Glucose 163 H (74-99) mg/dL POC Glucose (mg/dL) 266 H 203 H (75-99) mg/dL 09/12/17 Range/Units 21:19 RBC (4.30-5.90) m/uL PT (9.0-12.0) sec INR (<1.2) BUN (9-20) mg/dL Glucose (74-99) mg/dL POC Glucose (mg/dL) 241 H (75-99) mg/dL Assessment and Plan Assessment: #1 acute non-ST elevated [place] with elevated troponin level. Status post cardiac catheterization and stenting to saphenous vein graft. #2 worsening shortness of breath due to acute CHF. Ejection fraction preserved. Likely due to acute MD. Elevated BNP 3463 #3 atrial fibrillation on anticoagulation with Coumadin #4 history of coronary artery disease status post coronary artery bypass graft in 1988 5 is #5 diabetes type 2 [id number] #6 hypertension 7#Parkinson's disease #8 osteoarthritis #9 artery for sleep apnea on CPAP. #10 history of TIA #11 bradycardia is symptomatic. Possible underlying sick sinus Plan: Patient will be continued on aspirin and Plavix and lisinopril. No beta blockers due to bradycardia. Continue with statins. Lasix dose increased to 40 mg twice a day IV. Will monitor renal function tomorrow. Cardiology is following. Continue with insulin for blood sugar management. Further recommendations as per cardiology evaluation. Prognosis is guarded with multiple medical problems and comorbid conditions. Time with Patient: Greater than 30
[2017-09-13 06:11] LABS: Glucose,Whole Blood 168 mg/dL (75-99)
[2017-09-13 06:12] LABS: Basophils % (A) 0 %; CH 31.4; CHCM 32.6; Eosinophils # (A) 0.1 k/uL (0-0.7); Eosinophils % (A) 2 %; HCT 38.6 % (39.0-53.0); HGB 12.2 gm/dL (13.0-17.5); Luc # (Auto) 0.18; Luc % (Auto) 3; Lymphocytes # (A) 0.9 k/uL (1.0-4.8); Lymphocytes % (A) 15 %; MCH 30.6 pg (25.0-35.0); MCHC 31.6 g/dL (31.0-37.0); MCV 96.9 fL (80.0-100.0); Mean Platelet Volume 8.7; Monocytes # (A) 0.5 k/uL (0-1.0); Monocytes % (A) 9 %; Neutrophils # (A) 4.3 k/uL (1.3-7.7); Neutrophils % (A) 71 %; RBC 3.98 m/uL (4.30-5.90); RDW 15.3 % (11.5-15.5); WBC 6.1 k/uL (3.8-10.6); WBC (Perox) 6.05
[2017-09-13 06:24] LABS: Anion Gap 12 mmol/L; Blood Urea Nitrogen 44 mg/dL (9-20); Calcium 8.7 mg/dL (8.4-10.2); Carbon Dioxide 18 mmol/L (22-30); Chloride 107 mmol/L (98-107); Glucose 150 mg/dL (74-99); Non-African American GFR(MDRD) 59 (>60 ml/min/1.73 sqM); Sodium 137 mmol/L (137-145)
[2017-09-13] MEDS: INSULIN LISPRO (humaLOG) 300 UNIT/3 ML VIAL SQ SCH ×4 (06:26→21:10)
[2017-09-13] MEDS: FUROSEMIDE 10 MG/ML 4 ML VIAL IV SCH ×2 (06:26→17:18)
[2017-09-13] MEDS: CARBIDOPA-LEVODOPA 25-100 MG 1 EACH TAB PO SCH ×3 (09:15→21:03)
[2017-09-13] MEDS: CHOLECALCIFEROL 1,000 UNIT TAB PO SCH (09:17)
[2017-09-13] MEDS: LISINOPRIL 10 MG TAB PO SCH (09:17)
[2017-09-13] MEDS: LORATADINE 10 MG TAB PO SCH (09:17)
[2017-09-13] MEDS: CLOPIDOGREL 75 MG TAB PO SCH (09:17)
[2017-09-13] MEDS: ISOSORBIDE MONONITRATE ER 30 MG TAB.ER.24H PO SCH (09:17)
[2017-09-13] MEDS: FAMOTIDINE 20 MG TAB PO SCH (09:17)
[2017-09-13] MEDS: ASPIRIN 81 MG PO SCH (09:17)
[2017-09-13] MEDS: ENTACAPONE 200 MG TAB PO SCH ×3 (09:17→21:10)
[2017-09-13] MEDS: IPRATROPIUM-ALBUTEROL 3 ML NEB INHALATION SCH ×4 (09:29→20:44)
--- NOTE | 2017-09-13 11:28 | XR ---
EXAMINATION TYPE: XR chest 2V DATE OF EXAM: 09/13/2017 COMPARISON: 09/10/2017 TECHNIQUE: PA and lateral views submitted. HISTORY: Shortness of breath FINDINGS: Bilateral small effusion greater on the right subsegmental consolidation cardiomegaly, postoperative change and diffuse interstitial pattern. Arthropathy left shoulder and postsurgical change right reneeu ino IMPRESSION: 1. Correlate for CHF with small right effusion and tiny left pleural effusion.
[2017-09-13 12:03] LABS: Glucose,Whole Blood 220 mg/dL (75-99)
[2017-09-13] MEDS: predniSONE 20 MG TAB PO SCH (12:14)
--- NOTE | 2017-09-13 12:50 | P.DS ---
Providers Date of admission: 09/10/17 12:06 Expected date of discharge: 09/13/17 Attending physician: Rachid Parks Consults: 09/10/17 14:12 Consult Physician Stat Consulting Provider: Tracy Ramos Consult Reason/Comments: Jose Alfredo , a flutter, elevated trop. Do you want consulting provider notified?: Yes 09/11/17 12:58 Consult Physician Routine Consulting Provider: [facility] Consult Reason/Comments: Post Interventional patient Do you want consulting provider notified?: Already Contacted Primary care physician: Stated None Hospital Course: Final Diagnoses: #1 acute non-ST elevated MT with elevated troponin level. Status post cardiac catheterization and stenting to saphenous vein graft. #2 worsening shortness of breath due to acute CHF. Ejection fraction preserved. Likely due to acute MT. Elevated BNP 3463 #3 atrial fibrillation on anticoagulation with Coumadin #4 history of coronary artery disease status post coronary artery bypass graft in 1988 5 is #5 diabetes type 2 [id number] #6 hypertension 7#Parkinson's disease #8 osteoarthritis #9 artery for sleep apnea on CPAP. #10 history of TIA #11 bradycardia is symptomatic. Possible underlying sick sinus Hospital COurse:Patient is a 77-year-old male with a known history of hypertension, diabetes type 2, Parkinson's disease with iovodopa pump, coronary artery disease with history of bypass graft 5 present in 1988, atrial fibrillation on anticoagulation,underlying Parkinson's disease. Initially presented to [facility] with complaints of worsening short of breath since last night,chest discomfort. Stress test done 2 weeks ago which was normal as per his daughter. Pt. had chest x-ray at [facility] showed mild vascular congestion and a dose of IV Lasix was given. Patient was found to have elevated troponin level 2.8 and also bradycardia with heart rate in 40s. Patient was subsequently transferred to [facility] for further evaluation by cardiology. Repeat troponin increased to 5.6 and cardiology has been notified. EKG showed atrial fibrillation. Nonspecific ST-T wave changes. Underwent cardiac catheterization with stenting of the saphenous vein graft. Significant clinical improvement. Patient will be discharged to [facility] pending cardiology's final DC recommendations and clearance. Patient is being discharged in stable condition with guarded prognosis. The impression and plan of care has been dictated as directed. : I performed a history and examination of this patient, discussed the same with the dictator. I agree with the dictator's note ,documented as a scribe. Any additional findings or plans will be noted. Patient Condition at Discharge: Stable Plan - Discharge Summary New Discharge Prescriptions: New ALPRAZolam [Xanax] 0.25 mg PO Q6HR PRN #20 tab PRN Reason: Mild Anxiety Atorvastatin [Lipitor] 40 mg PO HS tab Carbidopa-Levodopa 25-100 mg [Sinemet 25-100 mg] 2 each PO TID tab Clopidogrel [Plavix] 75 mg PO DAILY tab Ipratropium-Albuterol Nebulize [Duoneb 0.5 mg-3 mg/3 ml Soln] 3 ml INHALATION RT-QID ampul.neb Ipratropium-Albuterol Nebulize [Duoneb 0.5 mg-3 mg/3 ml Soln] 3 ml INHALATION Q4H PRN ampul.neb PRN Reason: Shortness Of Breath Or Wheezing Mag Hydrox/Al Hydrox/Simeth [Maalox] 30 ml PO Q4HR PRN cup PRN Reason: Heartburn Nitroglycerin Sl Tabs [Nitrostat] 0.4 mg SUBLINGUAL Q5M PRN tab PRN Reason: Chest Pain traMADol HCl [Ultram] 50 mg PO Q6H PRN #20 tab PRN Reason: Pain INSULIN LISPRO (HumaLOG) [humaLOG] 0 unit SQ ACHS #1 vial Continue Ranitidine HCl [Zantac] 150 mg PO BID Warfarin [Coumadin] 5 mg PO HS Entacapone [Comtan] 200 mg PO TID metFORMIN HCL 1,000 mg PO BID Isosorbide Mononitrate ER [Imdur] 30 mg PO QAM predniSONE 20 mg PO Q48H Lisinopril [Prinivil] 10 mg PO DAILY Donepezil [Aricept] 10 mg PO HS Loratadine [Claritin] 10 mg PO DAILY Cholecalciferol [Vitamin D3] 5,000 unit PO DAILY Discontinued Aspirin 81 mg PO MOWEFR Ubidecarenone [Co Q-10] 300 mg PO QAM Black Seed Oil 1 cap PO BID Carbidopa/Levodopa [Duopa 4.63 mg-20 mg/ml Susp] 1 dose PEG/G-TUBE CONTINUOUS Discharge Medication List Entacapone [Comtan] 200 mg PO TID 06/10/14 [History] Isosorbide Mononitrate ER [Imdur] 30 mg PO QAM 05/04/14 [History] Ranitidine HCl [Zantac] 150 mg PO BID 05/04/14 [History] Warfarin [Coumadin] 5 mg PO HS 05/04/14 [History] metFORMIN HCL 1,000 mg PO BID 05/04/14 [History] Cholecalciferol [Vitamin D3] 5,000 unit PO DAILY 09/10/17 [History] Donepezil [Aricept] 10 mg PO HS 09/10/17 [History] Lisinopril [Prinivil] 10 mg PO DAILY 09/10/17 [History] Loratadine [Claritin] 10 mg PO DAILY 09/10/17 [History] predniSONE 20 mg PO Q48H 09/10/17 [History] ALPRAZolam [Xanax] 0.25 mg PO Q6HR PRN #20 tab 09/13/17 [Rx] Atorvastatin [Lipitor] 40 mg PO HS tab 09/13/17 [Rx] Carbidopa-Levodopa 25-100 mg [Sinemet 25-100 mg] 2 each PO TID tab 09/13/17 [Rx ] Clopidogrel [Plavix] 75 mg PO DAILY tab 09/13/17 [Rx] INSULIN LISPRO (HumaLOG) [humaLOG] 0 unit SQ ACHS #1 vial 09/13/17 [Rx] Ipratropium-Albuterol Nebulize [Duoneb 0.5 mg-3 mg/3 ml Soln] 3 ml INHALATION Q4H PRN ampul.neb 09/13/17 [Rx] Ipratropium-Albuterol Nebulize [Duoneb 0.5 mg-3 mg/3 ml Soln] 3 ml INHALATION RT -QID ampul.neb 09/13/17 [Rx] Mag Hydrox/Al Hydrox/Simeth [Maalox] 30 ml PO Q4HR PRN cup 09/13/17 [Rx] Nitroglycerin Sl Tabs [Nitrostat] 0.4 mg SUBLINGUAL Q5M PRN tab 09/13/17 [Rx] traMADol HCl [Ultram] 50 mg PO Q6H PRN #20 tab 09/13/17 [Rx] Follow up Appointment(s)/Referral(s): Osmar Li MD [REFERRING] - 3 Days (at [facility]) Activity/Diet/Wound Care/Special Instructions: INR pending [facility]> Pending final DC recommendations and clearance from cardiology. Diuretics as per cardiology.. Confirm cardiology follow-up appointment prior to discharge Diet: Consist. Carb, CHF diet, no added salt,Cardiac Activity: As tolerated CBC, BMP 3 days...... Daily PT/INR 2l NC O2
--- NOTE | 2017-09-13 13:21 | PN ---
PROGRESS NOTE This patient was admitted with acute non ST-segment elevation myocardial infarction and congestive heart failure. The patient is feeling slightly better. No orthopnea or PND noted. The patient's physical activities at home are significantly limited. Heart rate is 50 per minute. Blood pressure is 129/75 mmHg. First and second heart sounds are normal. Lungs examination reveals bilateral rales in the lower one third of the lung. The chest x-ray shows evidence of congestive cardiac failure. The patient's creatinine is 1.2. I will recommend to continue Lasix 40 mg IV b.i.d. for next 24-48 hours and patient subsequently will be transferred to the rehab unit. CHRISTIAN / CATHYN: [id number] /
[2017-09-13 13:37] LABS: INR 1.4 (<1.2); Prothrombin Time 13.8 sec (9.0-12.0)
--- NOTE | 2017-09-13 14:21 | P.PN ---
Subjective Progress Note Date: 09/13/17 Progress note being dictated for Dr. Parks. Interval history: Patient is a 77-year-old male with a known history of hypertension, diabetes type 2, Parkinson's disease with iovodopa pump, coronary artery disease with history of bypass graft 5 present in 1988, atrial fibrillation on anticoagulation with Coumadin INR level II.7 was initially presented to [facility] with complaints of worsening short of breath since last night. Patient also having chest discomfort. No associated radiation. No nausea vomiting. Patient is a poor historian due to underlying Parkinson's disease. Most of the history was taken from the medical records with bedside with his daughter. Patient apparently having this short of breath exertional for the past 2 months and was seen by Dr. Hilliard. Patient had stress test done 2 weeks ago which was normal as per his daughter. Pt. had chest x-ray at [facility] showed mild vascular congestion and a dose of IV Lasix was given. Patient was found to have elevated troponin level 2.8 and also bradycardia with heart rate in 40s. Patient was subsequently transferred to [facility] for further evaluation by cardiology. Currently patient denied any chest pain. Repeat troponin increased to 5.6 and cardiology has been notified. Patient's INR is therapeutic. No fever no chills. No recent illnesses. EKG showed atrial fibrillation. Nonspecific ST-T wave changes. 09/11/2017 Patient underwent cardiac catheterization and stenting of saphenous vein graft. Patient currently denied any chest pain. Patient is bradycardic. Beta blockers were not started due to bradycardia. No complaints of worsening short of breath. 09/12/2017 Patient is awake and oriented but could not provide any history today. No complaints of chest pain. No acute overnight issues. 09/13/2017. No acute overnight issues. Diuresing on Lasix IV push. Evaluated by physical therapy and subacute rehab recommended at discharge. Denies chest pain, palpitations or increased shortness of breath. INR 1.4. Objective - Vital Signs Vital signs: Vital Signs Temp 97.4 F L 09/13/17 12:00 Pulse 53 L 09/13/17 12:00 Resp 18 09/13/17 12:00 BP 129/75 09/13/17 12:00 Pulse Ox 94 L 09/13/17 12:00 Intake & Output 10/09/13/17 09/13/17 18:59 06:59 18:59 Intake Total 733 Output Total 100 Balance 633 Weight 98 kg 99.5 kg Intake: Oral 733 Output: Urine 100 Other: Voiding Method Diaper Diaper Diaper Incontinent Incontinent Incontinent # Voids 1 1 # Bowel Movements 1 - Exam Patient is lying in the bed comfortably, no acute distress, awake alert and oriented.. HEENT: Normocephalic. Neck is supple. Pupils reactive. Nostrils clear. Oral cavity is moist. Ears reveal no drainage. Neck reveals no JVD, carotid bruits, or thyromegaly. CHEST EXAMINATION: Trachea is central. Symmetrical expansion. Lung myaes clear to auscultation and percussion. Diminished air entry basally CARDIAC: Normal S1, S2 with no gallops. No murmurs . Irregularly irregular ABDOMEN: Soft. Bowel sounds normal. No organomegaly. No abdominal bruits. Pt. does have levodopa pump Extremities: 1+ edema. No clubbing or cyanosis Neurologically awake, alert, oriented x3 with well-coordinated movements. No focal deficits noted Skin: No rash or skin lesions. Psychiatric: Operative. Nonsuicidal Musculoskeletal: No joint swelling or deformity. Normal range of motion. - Labs CBC & Chem 7: 09/13/17 05:37 09/13/17 05:37 Labs: Abnormal Lab Results - Last 24 Hours (Table) 09/12/17 09/12/17 09/13/17 Range/Units 16:41 21:19 05:37 RBC 3.98 L (4.30-5.90) m/uL Hgb 12.2 L (13.0-17.5) gm/dL Hct 38.6 L (39.0-53.0) % Lymphocytes # 0.9 L (1.0-4.8) k/uL Carbon Dioxide (22-30) mmol/L BUN (9-20) mg/dL Glucose (74-99) mg/dL POC Glucose (mg/dL) 203 H 241 H (75-99) mg/dL 09/13/17 09/13/17 09/13/17 Range/Units 05:37 06:08 11:47 RBC (4.30-5.90) m/uL Hgb (13.0-17.5) gm/dL Hct (39.0-53.0) % Lymphocytes # (1.0-4.8) k/uL Carbon Dioxide 18 L (22-30) mmol/L BUN 44 H (9-20) mg/dL Glucose 150 H (74-99) mg/dL POC Glucose (mg/dL) 168 H 220 H (75-99) mg/dL Assessment and Plan Assessment: #1 acute non-ST elevated NV with elevated troponin level. Status post cardiac catheterization and stenting to saphenous vein graft. #2 worsening shortness of breath due to acute CHF. Ejection fraction preserved. Likely due to acute NV. Elevated BNP 3463 #3 atrial fibrillation on anticoagulation with Coumadin #4 history of coronary artery disease status post coronary artery bypass graft in 1988 5 is #5 diabetes type 2 [id number] #6 hypertension 7#Parkinson's disease #8 osteoarthritis #9 artery for sleep apnea on CPAP. #10 history of TIA #11 bradycardia is symptomatic. Possible underlying sick sinus Plan: Plan: Continue on current medication regime , statins, Plavix, Coumadin, ANAID inhibitor. monitoring and symptomatic treatment. Continue diuresing with Lasix IV push for another day as per cardiology. Blood sugars up into the 200s , will add Lantus to med regime. Close monitoring of Accu-Cheks. Discharge planning in progress for [facility] subacute rehab. Further recommendations to follow. The impression and plan of care has been dictated as directed. : I performed a history and examination of this patient, discussed the same with the dictator. I agree with the dictator's note ,documented as a scribe. Any additional findings or plans will be noted.
[2017-09-13 16:35] LABS: Glucose,Whole Blood 258 mg/dL (75-99)
[2017-09-13] MEDS: INSULIN GLARGINE 100 UNIT/ML 10 ML VIAL SQ SCH (17:17)
[2017-09-13] MEDS: WARFARIN 5 MG TAB PO SCH (17:18)
[2017-09-13] MEDS: metFORMIN 500 MG TAB PO SCH (17:18)
[2017-09-13] MEDS: ATORVASTATIN 40 MG TAB PO SCH (21:10)
[2017-09-13] MEDS: DONEPEZIL 10 MG TAB PO SCH (21:10)
[2017-09-13 21:13] LABS: Glucose,Whole Blood 355 mg/dL (75-99)
[2017-09-14 04:24] LABS: Basophils % (A) 0 %; CH 31.6; CHCM 34.1; Eosinophils # (A) 0.1 k/uL (0-0.7); Eosinophils % (A) 1 %; HCT 36.8 % (39.0-53.0); HDW 3.22; Luc # (Auto) 0.18; Luc % (Auto) 3; Lymphocytes # (A) 0.7 k/uL (1.0-4.8); Lymphocytes % (A) 10 %; MCH 30.5 pg (25.0-35.0); MCHC 32.7 g/dL (31.0-37.0); MCV 93.3 fL (80.0-100.0); Mean Platelet Volume 8.1; Monocytes # (A) 0.5 k/uL (0-1.0); Monocytes % (A) 8 %; Neutrophils # (A) 5.1 k/uL (1.3-7.7); Neutrophils % (A) 78 %; RBC 3.94 m/uL (4.30-5.90); RDW 15.1 % (11.5-15.5); WBC 6.6 k/uL (3.8-10.6); WBC (Perox) 6.71
[2017-09-14 04:28] LABS: INR 1.8 (<1.2); Prothrombin Time 17.4 sec (9.0-12.0)
[2017-09-14 04:33] LABS: Anion Gap 9 mmol/L; Blood Urea Nitrogen 41 mg/dL (9-20); Calcium 8.8 mg/dL (8.4-10.2); Carbon Dioxide 23 mmol/L (22-30); Chloride 104 mmol/L (98-107); Glucose 199 mg/dL (74-99); Magnesium 1.8 mg/dL (1.6-2.3); Non-African American GFR(MDRD) >60 (>60 ml/min/1.73 sqM); Potassium 4.3 mmol/L (3.5-5.1); Sodium 136 mmol/L (137-145)
[2017-09-14 05:54] LABS: Glucose,Whole Blood 203 mg/dL (75-99)
[2017-09-14] MEDS: FUROSEMIDE 10 MG/ML 4 ML VIAL IV SCH ×2 (06:15→17:22)
[2017-09-14] MEDS: metFORMIN 500 MG TAB PO SCH ×2 (07:00→17:22)
[2017-09-14] MEDS: INSULIN LISPRO (humaLOG) 300 UNIT/3 ML VIAL SQ SCH ×4 (07:01→21:38)
[2017-09-14] MEDS: IPRATROPIUM-ALBUTEROL 3 ML NEB INHALATION SCH ×4 (07:51→20:19)
[2017-09-14] MEDS: CARBIDOPA-LEVODOPA 25-100 MG 1 EACH TAB PO SCH ×3 (08:00→21:42)
[2017-09-14] MEDS: INSULIN GLARGINE 100 UNIT/ML 10 ML VIAL SQ SCH (08:03)
[2017-09-14] MEDS: ENTACAPONE 200 MG TAB PO SCH ×3 (08:05→21:38)
[2017-09-14] MEDS: CHOLECALCIFEROL 1,000 UNIT TAB PO SCH (08:06)
[2017-09-14] MEDS: LORATADINE 10 MG TAB PO SCH (08:06)
[2017-09-14] MEDS: LISINOPRIL 10 MG TAB PO SCH (08:06)
[2017-09-14] MEDS: FAMOTIDINE 20 MG TAB PO SCH (08:06)
[2017-09-14] MEDS: CLOPIDOGREL 75 MG TAB PO SCH (08:06)
[2017-09-14] MEDS: ISOSORBIDE MONONITRATE ER 30 MG TAB.ER.24H PO SCH (08:06)
[2017-09-14 11:47] LABS: Glucose,Whole Blood 236 mg/dL (75-99)
[2017-09-14] MEDS: WARFARIN 5 MG TAB PO SCH (17:23)
--- NOTE | 2017-09-14 17:27 | PN ---
PROGRESS NOTE This patient is status post stent to the obtuse marginal branch. The patient is feeling better. He is much more alert and awake. His breathing is improved. Denies any orthopnea or PND. The patient's respirations are not labored. Blood pressure is 130/85 mmHg. First and second heart sounds are normal. Lungs examination still reveal bilateral basilar rales. We will repeat the chest x-ray tomorrow. Creatinine is 1.0. At present I will continue the patient on IV Lasix. MMODL / IJN: [id number] /
[2017-09-14 17:28] LABS: Glucose,Whole Blood 198 mg/dL (75-99)
[2017-09-14 21:35] LABS: Glucose,Whole Blood 174 mg/dL (75-99)
[2017-09-14] MEDS: ATORVASTATIN 40 MG TAB PO SCH (21:38)
[2017-09-14] MEDS: DONEPEZIL 10 MG TAB PO SCH (21:38)
--- NOTE | 2017-09-15 01:05 | P.PN ---
Subjective Progress Note Date: 09/14/17 Principal diagnosis: Shortness of breath Patient is a 77-year-old male with a known history of hypertension, diabetes type 2, Parkinson's disease with iovodopa pump, coronary artery disease with history of bypass graft 5 present in 1988, atrial fibrillation on anticoagulation with Coumadin INR level II.7 was initially presented to [facility] with complaints of worsening short of breath since last night. Patient also having chest discomfort. No associated radiation. No nausea vomiting. Patient is a poor historian due to underlying Parkinson's disease. Most of the history was taken from the medical records with bedside with his daughter. Patient apparently having this short of breath exertional for the past 2 months and was seen by Dr. Hilliard. Patient had stress test done 2 weeks ago which was normal as per his daughter. Pt. had chest x-ray at [facility] showed mild vascular congestion and a dose of IV Lasix was given. Patient was found to have elevated troponin level 2.8 and also bradycardia with heart rate in 40s. Patient was subsequently transferred to [facility] for further evaluation by cardiology. Currently patient denied any chest pain. Repeat troponin increased to 5.6 and cardiology has been notified. Patient's INR is therapeutic. No fever no chills. No recent illnesses. EKG showed atrial fibrillation. Nonspecific ST-T wave changes. 09/11/2017 Patient underwent cardiac catheterization and stenting of saphenous vein graft. Patient currently denied any chest pain. Patient is bradycardic. Beta blockers were not started due to bradycardia. No complaints of worsening short of breath. 09/12/2017 Patient is awake and oriented but could not provide any history today. No complaints of chest pain. No acute overnight issues. 09/14/2017 Patient is more awake and oriented today. Breathing status is much improved. Continues to be on IV Lasix. PTOT. Patient is sitting on a chair today. Denied any complaints of chest pain or short of breath. No other acute overnight issues. Current medications reviewed. Objective - Vital Signs Vital signs: Vital Signs Temp 98.2 F 09/14/17 16:00 Pulse 48 L 09/14/17 16:00 Resp 20 09/14/17 16:00 BP 116/74 09/14/17 16:00 Pulse Ox 95 09/14/17 16:00 Intake & Output 09/14/17 09/14/1709/15/17 06:59 18:59 06:59 Intake Total 750 Balance 750 Weight 90.5 kg Intake: Oral 750 Other: Voiding Method Diaper Diaper Incontinent Incontinent # Voids 1 2 - Exam Patient is lying in the bed comfortably, no acute distress, awake alert and oriented.. HEENT: Normocephalic. Neck is supple. Pupils reactive. Nostrils clear. Oral cavity is moist. Ears reveal no drainage. Neck reveals no JVD, carotid bruits, or thyromegaly. CHEST EXAMINATION: Trachea is central. Symmetrical expansion. Lung mayes clear to auscultation and percussion. Diminished air entry basally CARDIAC: Normal S1, S2 with no gallops. No murmurs . Irregularly irregular ABDOMEN: Soft. Bowel sounds normal. No organomegaly. No abdominal bruits. Pt. does have levodopa pump Extremities: 1+ edema. No clubbing or cyanosis Neurologically awake, alert, oriented x2-3 with well-coordinated movements. No focal deficits noted Skin: No rash or skin lesions. Psychiatric: Operative. Nonsuicidal Musculoskeletal: No joint swelling or deformity. Normal range of motion. - Labs CBC & Chem 7: 09/14/17 04:12 09/14/17 04:08 Labs: Abnormal Lab Results - Last 24 Hours (Table) 09/13/17 09/14/17 09/14/17 Range/Units 21:10 04:08 04:08 RBC (4.30-5.90) m/uL Hgb (13.0-17.5) gm/dL Hct (39.0-53.0) % Lymphocytes # (1.0-4.8) k/uL PT 17.4 H (9.0-12.0) sec INR 1.8 H (<1.2) Sodium 136 L (137-145) mmol/L BUN 41 H (9-20) mg/dL Glucose 199 H (74-99) mg/dL POC Glucose (mg/dL) 355 H (75-99) mg/dL 09/14/17 09/14/17 09/14/17 Range/Units 04:12 05:51 11:39 RBC 3.94 L (4.30-5.90) m/uL Hgb 12.0 L (13.0-17.5) gm/dL Hct 36.8 L (39.0-53.0) % Lymphocytes # 0.7 L (1.0-4.8) k/uL PT (9.0-12.0) sec INR (<1.2) Sodium (137-145) mmol/L BUN (9-20) mg/dL Glucose (74-99) mg/dL POC Glucose (mg/dL) 203 H 236 H (75-99) mg/dL 09/14/17 Range/Units 17:02 RBC (4.30-5.90) m/uL Hgb (13.0-17.5) gm/dL Hct (39.0-53.0) % Lymphocytes # (1.0-4.8) k/uL PT (9.0-12.0) sec INR (<1.2) Sodium (137-145) mmol/L BUN (9-20) mg/dL Glucose (74-99) mg/dL POC Glucose (mg/dL) 198 H (75-99) mg/dL Assessment and Plan Assessment: #1 acute non-ST elevated LA with elevated troponin level. Status post cardiac catheterization and stenting to saphenous vein graft. #2 worsening shortness of breath due to acute CHF. Ejection fraction preserved. Likely due to acute LA. Elevated BNP 3463 #3 atrial fibrillation on anticoagulation with Coumadin #4 history of coronary artery disease status post coronary artery bypass graft in 1988 5 is #5 diabetes type 2 [id number] #6 hypertension 7#Parkinson's disease #8 osteoarthritis #9 artery for sleep apnea on CPAP. #10 history of TIA #11 bradycardia is symptomatic. Possible underlying sick sinus Plan: Patient will be continued on aspirin and Plavix and lisinopril. No beta blockers due to bradycardia. Continue with statins. Lasix dose increased to 40 mg twice a day IV. Will monitor renal function tomorrow. Cardiology is following. Continue with insulin for blood sugar management. Further recommendations as per cardiology evaluation. Prognosis is guarded with multiple medical problems and comorbid conditions. Time with Patient: Greater than 30
[2017-09-15] MEDS: FUROSEMIDE 10 MG/ML 4 ML VIAL IV SCH ×2 (04:51→17:08)
[2017-09-15 06:24] LABS: Glucose,Whole Blood 171 mg/dL (75-99)
[2017-09-15] MEDS: INSULIN LISPRO (humaLOG) 300 UNIT/3 ML VIAL SQ SCH ×4 (06:58→21:40)
[2017-09-15] MEDS: metFORMIN 500 MG TAB PO SCH ×2 (06:58→17:08)
--- NOTE | 2017-09-15 07:40 | XR ---
EXAMINATION TYPE: XR chest 1V portable DATE OF EXAM: 09/15/2017 HISTORY: chf. REFERENCE: Previous study dated 09/13/2017. FINDINGS: There has been a midline sternotomy. The heart is enlarged. There is vascular congestion and pulmonary edema. There is a small, left-sided effusion. IMPRESSION: FINDINGS MOST CONSISTENT WITH CONGESTIVE HEART FAILURE.
[2017-09-15] MEDS: CARBIDOPA-LEVODOPA 25-100 MG 1 EACH TAB PO SCH ×3 (07:55→20:43)
[2017-09-15] MEDS: ASPIRIN 81 MG PO SCH (07:56)
[2017-09-15] MEDS: CLOPIDOGREL 75 MG TAB PO SCH (07:56)
[2017-09-15] MEDS: CHOLECALCIFEROL 1,000 UNIT TAB PO SCH (07:56)
[2017-09-15] MEDS: LISINOPRIL 10 MG TAB PO SCH (07:57)
[2017-09-15] MEDS: FAMOTIDINE 20 MG TAB PO SCH (07:57)
[2017-09-15] MEDS: LORATADINE 10 MG TAB PO SCH (07:57)
[2017-09-15] MEDS: ENTACAPONE 200 MG TAB PO SCH ×3 (07:57→20:43)
[2017-09-15] MEDS: ISOSORBIDE MONONITRATE ER 30 MG TAB.ER.24H PO SCH (07:57)
[2017-09-15] MEDS: INSULIN GLARGINE 100 UNIT/ML 10 ML VIAL SQ SCH (08:00)
[2017-09-15] MEDS: IPRATROPIUM-ALBUTEROL 3 ML NEB INHALATION SCH ×4 (08:06→19:50)
[2017-09-15 11:45] LABS: Glucose,Whole Blood 203 mg/dL (75-99)
[2017-09-15] MEDS: predniSONE 20 MG TAB PO SCH (12:04)
[2017-09-15 13:32] LABS: Anion Gap 11 mmol/L; Blood Urea Nitrogen 29 mg/dL (9-20); Calcium 9.3 mg/dL (8.4-10.2); Carbon Dioxide 24 mmol/L (22-30); Chloride 104 mmol/L (98-107); Glucose 188 mg/dL (74-99); Non-African American GFR(MDRD) >60 (>60 ml/min/1.73 sqM); Potassium 3.9 mmol/L (3.5-5.1); Sodium 139 mmol/L (137-145)
--- NOTE | 2017-09-15 15:47 | PN ---
PROGRESS NOTE This patient is status post a stent to the obtuse marginal branch. Patient had evidence of congestive cardiac failure. Patient has a parkinsonism. He is doing better. He is sitting up in a chair. The patient had evidence of heart failure. Heart rate is now 50 per minute. The blood pressure is 130/77 mmHg. First and second heart sounds are normal. Lungs examination reveals few basal rales. We will continue the IV Lasix for the next 24 hours. Chest x-ray will be done tomorrow. Patient will be probably going to be transferred to a rehab center tomorrow. MMODL / IJN: [id number] /
[2017-09-15 16:49] LABS: Glucose,Whole Blood 136 mg/dL (75-99)
[2017-09-15] MEDS: WARFARIN 5 MG TAB PO SCH (17:08)
[2017-09-15] MEDS: traMADol 50 MG TAB PO PRN (18:20)
[2017-09-15] MEDS: DONEPEZIL 10 MG TAB PO SCH (20:43)
[2017-09-15] MEDS: ATORVASTATIN 40 MG TAB PO SCH (20:43)
[2017-09-15 21:32] LABS: Glucose,Whole Blood 228 mg/dL (75-99)
[2017-09-16] MEDS ORDERED: CARBIDOPA PEG/G-TUBE SCH (05:00)
[2017-09-16] MEDS ORDERED: LEVODOPA PEG/G-TUBE SCH (05:00)
[2017-09-16] MEDS: FUROSEMIDE 10 MG/ML 4 ML VIAL IV SCH (05:40)
[2017-09-16 06:17] LABS: Glucose,Whole Blood 176 mg/dL (75-99)
[2017-09-16 06:37] LABS: INR 1.5 (<1.2); Prothrombin Time 14.5 sec (9.0-12.0)
[2017-09-16] MEDS: INSULIN LISPRO (humaLOG) 300 UNIT/3 ML VIAL SQ SCH ×3 (06:52→17:04)
[2017-09-16] MEDS: metFORMIN 500 MG TAB PO SCH ×2 (06:52→17:04)
[2017-09-16 06:57] LABS: Anion Gap 11 mmol/L; Blood Urea Nitrogen 26 mg/dL (9-20); Calcium 10.2 mg/dL (8.4-10.2); Carbon Dioxide 26 mmol/L (22-30); Chloride 104 mmol/L (98-107); Glucose 164 mg/dL (74-99); Non-African American GFR(MDRD) >60 (>60 ml/min/1.73 sqM); Potassium 4.2 mmol/L (3.5-5.1); Sodium 141 mmol/L (137-145)
[2017-09-16] MEDS: IPRATROPIUM-ALBUTEROL 3 ML NEB INHALATION SCH ×3 (08:24→16:58)
[2017-09-16 08:26] VITALS: RESP 20
[2017-09-16] MEDS: ENTACAPONE 200 MG TAB PO SCH ×2 (08:42→16:26)
[2017-09-16] MEDS: FAMOTIDINE 20 MG TAB PO SCH (08:43)
[2017-09-16] MEDS: CARBIDOPA-LEVODOPA 25-100 MG 1 EACH TAB PO SCH ×2 (08:43→08:49)
[2017-09-16] MEDS: CLOPIDOGREL 75 MG TAB PO SCH (08:43)
[2017-09-16] MEDS: CHOLECALCIFEROL 1,000 UNIT TAB PO SCH (08:43)
[2017-09-16] MEDS: ASPIRIN 81 MG PO SCH (08:43)
[2017-09-16] MEDS: LORATADINE 10 MG TAB PO SCH (08:44)
[2017-09-16] MEDS: ISOSORBIDE MONONITRATE ER 30 MG TAB.ER.24H PO SCH (08:46)
[2017-09-16] MEDS: LISINOPRIL 10 MG TAB PO SCH (08:46)
[2017-09-16] MEDS: INSULIN GLARGINE 100 UNIT/ML 10 ML VIAL SQ SCH (09:19)
[2017-09-16 11:41] LABS: Glucose,Whole Blood 159 mg/dL (75-99)
--- NOTE | 2017-09-16 14:16 | P.PN ---
Progress Note - Text Progress Note Date: 09/16/17 Addendum to Discharge summary for Dr. Parks. Patient has been cleared for discharge by cardiology. Patient stable for discharge. Patient is being discharged to [facility] subacute rehab in a stable condition with guarded prognosis. Please refer to full prior discharge summary. The impression and plan of care has been dictated as directed. : I performed a history and examination of this patient, discussed the same with the dictator. I agree with the dictator's note ,documented as a scribe. Any additional findings or plans will be noted.
--- NOTE | 2017-09-16 14:59 | P.PN ---
Subjective Progress Note Date: 09/16/17 This is a pleasant 77-year-old gentleman who follows with Dr. Hilliard in the office. He has a known history of coronary artery disease with prior bypass surgery, hypertension, hyperlipidemia, diabetes, Parkinson's. Most recent heart catheterization was performed in 2008 which revealed a patent DYKES to the LAD, SVG to the RCA, OM, RI. History also of chronic persistent atrial fibrillation, on Eliquis for anticoagulation. Patient was transferred here from [facility]. History was obtained from the patient as well as his daughter and who are at bedside. Apparently the patient has been complaining of shortness of breath since June, in June it was initially exertional shortness of breath, since then it has progressively worsened, patient also has been experiencing chest heaviness and pressure. Patient did go to see Dr. Hilliard in the office in July because of these symptoms, an echocardiogram with Doppler study was performed which revealed normal left ventricular size and function with mild aortic regurg and moderate aortic stenosis. Patient also underwent a stress test which was reported to be inconclusive as a baseline EKG abnormalities. Ischemic cardiomyopathy with mild to moderate LV systolic dysfunction secondary to prior inferior wall PA. No documentation of reversible ischemia. Patient presented to [facility] on this occasion, because of persistence in worsening shortness of breath with associated chest pressure and heaviness with radiation to the jaw. Positive PND and orthopnea. EKG performed on arrival there showed atrial flutter with ST depression in the anterior leads. Chest x-ray performed there revealed cardiomegaly. Mild pulmonary vascular congestion with mild bilateral peripheral pulmonary edema. Density is identified at the lung bases most likely reflecting atelectasis and small pleural effusions. 09/16/2017 Patient underwent angioplasty with stenting of the obtuse marginal branch. He also had some congestive cardiac failure. Patient's chest x-ray reviewed shows significant improvement. We will discontinue the IV Lasix and start the patient on oral Lasix today. He may be able to be discharged once cleared by his primary and we will make him a follow-up appointment in the office post discharge. Objective - Vital Signs Vital signs: Vital Signs Temp 96.6 F L 09/16/17 11:49 Pulse 68 09/16/17 12:12 Resp 20 09/16/17 11:49 BP 144/96 09/16/17 11:49 Pulse Ox 94 L 09/16/17 11:49 Intake & Output 09/15/17 09/16/17 09/16/17 18:59 06:59 18:59 Intake Total 840 200 720 Balance 840 200 720 Weight 89 kg Intake: Oral 840 200 720 Other: Voiding Method Diaper Diaper Diaper Incontinent Incontinent Incontinent # Voids 3 2 3 - Exam PHYSICAL EXAMINATION: HEENT: Head is atraumatic, normocephalic. Pupils equal, round. Neck is supple. There elevated jugular venous pressure. HEART EXAMINATION: Heart S1 and S2 irregularly irregular a systolic murmur is heard CHEST EXAMINATION: Lungs reveal rales to amari bases. ABDOMEN: Soft, nontender. Bowel sounds are heard. No organomegaly noted. EXTREMITIES: 2+ peripheral pulses with trace evidence of peripheral edema and no calf tenderness noted. NEUROLOGIC patient is awake, alert and oriented -3. - Labs CBC & Chem 7: 09/14/17 04:12 09/16/17 05:26 Labs: Abnormal Lab Results - Last 24 Hours (Table) 09/15/17 09/15/17 09/16/17 Range/Units 16:31 21:16 05:26 PT (9.0-12.0) sec INR (<1.2) BUN 26 H (9-20) mg/dL Glucose 164 H (74-99) mg/dL POC Glucose (mg/dL) 136 H 228 H (75-99) mg/dL 09/16/17 09/16/17 09/16/17 Range/Units 05:26 06:08 11:21 PT 14.5 H (9.0-12.0) sec INR 1.5 H (<1.2) BUN (9-20) mg/dL Glucose (74-99) mg/dL POC Glucose (mg/dL) 176 H 159 H (75-99) mg/dL Assessment and Plan Plan: Assessment and plan #1 non-Q-wave myocardial infarction, troponins 2.7, 5.6, 7.5. EKG shows atrial fibrillation with anterior lateral ST depression right bundle branch block pattern #2 chronic persistent atrial fibrillation/flutter, on Coumadin for anticoagulation, #3 known history of coronary artery disease with prior bypass surgery, patient did have a stress test performed one month ago in the office which did not reveal any evidence of reversible ischemia. Echocardiogram with Doppler study was also performed in June of this year which revealed a normal left ventricular systolic function with moderate concentric LVH moderate aortic stenosis. #4 hypertension #5 diabetes #6 hyperlipidemia #7 Parkinson's #8 hypomagnesemia, magnesium level I.5. #9 congestive heart failure, LV function was normal in June of this year, diastolic acute on chronic. #10 moderate aortic stenosis. Plan We will discontinue the IV Lasix and start the patient on oral Lasix. We will also discontinue the aspirin and continue the patient on Plavix along with Coumadin. PT INR on Saturday. Follow-up with Dr. Alicia Valdovinos. DNP note has been reviewed, I agree with a documented findings and plan of care. Patient was seen and examined.
[2017-09-16] MEDS ORDERED: FUROSEMIDE 40 MG TAB PO SCH (16:00)
[2017-09-16 16:26] VITALS: BP 154/79; TEMP 97
[2017-09-16 16:52] LABS: Glucose,Whole Blood 176 mg/dL (75-99)
[2017-09-16] MEDS: WARFARIN 5 MG TAB PO SCH (17:04)
[2017-09-16 17:13] VITALS: PULSE 62
== END 2017-09-16 17:47 | DRG 246 ==
LOC: 6SEL 12:06
PROVIDERS: ADMIT Internal Medicine; ATTEND Internal Medicine
PROC: 4A023N7 Measurement of Cardiac Sampling and Pressure, Left Heart, Percutaneous Approach (ICD-10-PCS; 2017-09-11)
PROC: B2111ZZ Fluoroscopy of Multiple Coronary Arteries using Low Osmolar Contrast (ICD-10-PCS; 2017-09-11)
PROC: 3E073KZ Introduction of Other Diagnostic Substance into Coronary Artery, Percutaneous Approach (ICD-10-PCS; principal; 2017-09-11 11:00)
PROC: 027034Z Dilation of Coronary Artery, One Artery with Drug-eluting Intraluminal Device, Percutaneous Approach (ICD-10-PCS; 2017-09-11 11:00)
DX: I21.4 Non-ST elevation (NSTEMI) myocardial infarction (principal); I50.33 Acute on chronic diastolic (congestive) heart failure; I48.1 Persistent atrial fibrillation; G20 Parkinson's disease; I25.810 Atherosclerosis of coronary artery bypass graft(s) without angina pectoris; E83.42 Hypomagnesemia; I49.5 Sick sinus syndrome; J98.11 Atelectasis; I48.92 Unspecified atrial flutter; I11.0 Hypertensive heart disease with heart failure; I25.5 Ischemic cardiomyopathy; I45.10 Unspecified right bundle-branch block; E11.9 Type 2 diabetes mellitus without complications; E78.5 Hyperlipidemia, unspecified; G47.33 Obstructive sleep apnea (adult) (pediatric); I25.2 Old myocardial infarction; I35.0 Nonrheumatic aortic (valve) stenosis; K21.9 Gastro-esophageal reflux disease without esophagitis; M16.0 Bilateral primary osteoarthritis of hip; K57.90 Diverticulosis of intestine, part unspecified, without perforation or abscess without bleeding; Z79.82 Long term (current) use of aspirin; Z79.01 Long term (current) use of anticoagulants; Z79.84 Long term (current) use of oral hypoglycemic drugs; Z79.52 Long term (current) use of systemic steroids; Z79.899 Other long term (current) drug therapy; Z96.89 Presence of other specified functional implants; Z86.73 Personal history of transient ischemic attack (TIA), and cerebral infarction without residual deficits; Z85.828 Personal history of other malignant neoplasm of skin; Z86.010 Personal history of colon polyps; Z87.440 Personal history of urinary (tract) infections; Z96.653 Presence of artificial knee joint, bilateral; Z96.1 Presence of intraocular lens; Z98.41 Cataract extraction status, right eye; Z98.42 Cataract extraction status, left eye; Z88.8 Allergy status to other drugs, medicaments and biological substances
CPT/HCPCS: 71010; 71020; 80048; 83036; 83735; 84484; 85025; 85610; 85730; 93306; 93459; 94640; 94760

== ENCOUNTER 2018-01-02 19:45 | Inpatient (IN) | payer MEDICARE, OTHER ==
[2018-01-02] MEDS ORDERED: NALOXONE 0.4 MG/ML 1 ML VIAL IV PRN (21:34)
[2018-01-02 21:35] LABS: Basophils % (A) 0 %; Eosinophils # (A) 0.1 k/uL (0-0.7); Eosinophils % (A) 2 %; HCT 42.1 % (39.0-53.0); HGB 13.3 gm/dL (13.0-17.5); Hypochromasia Slight; Lymphocytes # (A) 1.3 k/uL (1.0-4.8); Lymphocytes % (A) 23 %; MCH 28.5 pg (25.0-35.0); MCHC 31.6 g/dL (31.0-37.0); MCV 90.3 fL (80.0-100.0); Mean Platelet Volume 7.5; Monocytes # (A) 0.5 k/uL (0-1.0); Monocytes % (A) 8 %; Neutrophils # (A) 3.8 k/uL (1.3-7.7); Neutrophils % (A) 64 %; Platelet Count 239 k/uL (150-450); Poikilocytosis Slight; RBC 4.65 m/uL (4.30-5.90); RDW 14.8 % (11.5-15.5); WBC 5.9 k/uL (3.8-10.6)
[2018-01-02] MEDS ORDERED: NITROGLYCERIN SL TABS 0.4 MG TAB SUBLINGUAL PRN (21:44)
--- NOTE | 2018-01-02 21:44 | ED ---
General Adult HPI - General Chief complaint: Shortness of Breath Stated complaint: ÁNGEL Time Seen by Provider: 01/02/18 19:47 Source: patient, EMS, RN notes reviewed, old records reviewed Mode of arrival: EMS - History of Present Illness Initial comments: 77-year-old male presents as transfer from [facility] for evaluation of CHF and bradycardia. Patient presented to the emergency department complaining of 2 days worsening dyspnea. He also has orthopnea and PND. Patient has history of CAD status post CABG and recent cath with stenting of the obtuse marginal in August 2017. EF at that time was 45%. Patient denied abdominal pain nausea vomiting. Denied chest pain. Denied URI symptoms or flulike symptoms. - Related Data Home Medications Medication Instructions Recorded Confirmed Entacapone [Comtan] 200 mg PO TID 05/04/14 09/10/17 Isosorbide Mononitrate ER [Imdur] 30 mg PO QAM 05/04/14 09/10/17 Ranitidine HCl [Zantac] 150 mg PO BID 05/04/14 09/10/17 Warfarin [Coumadin] 5 mg PO HS 05/04/14 09/10/17 metFORMIN HCL 1,000 mg PO BID 05/04/14 09/10/17 Cholecalciferol [Vitamin D3] 5,000 unit PO DAILY 09/10/17 09/10/17 Donepezil [Aricept] 10 mg PO HS 09/10/17 09/10/17 Lisinopril [Prinivil] 10 mg PO DAILY 09/10/17 09/10/17 Loratadine [Claritin] 10 mg PO DAILY 09/10/17 09/10/17 predniSONE 20 mg PO Q48H 09/10/17 09/10/17 Previous Rx's Medication Instructions Recorded ALPRAZolam [Xanax] 0.25 mg PO Q6HR PRN #20 tab 09/13/17 Atorvastatin [Lipitor] 40 mg PO HS tab 09/13/17 Clopidogrel [Plavix] 75 mg PO DAILY tab 09/13/17 INSULIN LISPRO (HumaLOG) [humaLOG] 0 unit SQ ACHS #1 vial 09/13/17 Ipratropium-Albuterol Nebulize 3 ml INHALATION Q4H PRN ampul.neb 09/13/17 [Duoneb 0.5 mg-3 mg/3 ml Soln] Ipratropium-Albuterol Nebulize 3 ml INHALATION RT-QID ampul.neb 09/13/17 [Duoneb 0.5 mg-3 mg/3 ml Soln] Mag Hydrox/Al Hydrox/Simeth 30 ml PO Q4HR PRN cup 09/13/17 [Maalox] Nitroglycerin Sl Tabs [Nitrostat] 0.4 mg SUBLINGUAL Q5M PRN tab 09/13/17 traMADol HCl [Ultram] 50 mg PO Q6H PRN #20 tab 09/13/17 Carbidopa/Levodopa [Duopa 4.63 1 dose PEG/G-TUBE DAILY@0500 09/16/17 Mg-20 Mg/Ml Susp] Furosemide [Lasix] 40 mg PO BID@0900,1600 tab 09/16/17 Insulin Glargine [Lantus] 12 unit SQ DAILY #1 vial 09/16/17 Allergies Allergy/AdvReac Type Severity Reaction Status Date / Time diphenhydramine HCl AdvReac Hallucinati Verified 01/02/18 19:54 [From Fay] ons Review of Systems ROS Statement: Those systems with pertinent positive or pertinent negative responses have been documented in the HPI. ROS Other: All systems not noted in ROS Statement are negative. Past Medical History Past Medical History: Atrial Fibrillation, Coronary Artery Disease (CAD), Cancer , CVA/TIA, Diabetes Mellitus, GERD/Reflux, Hypertension, Musculoskeletal Disorder, Neurologic Disorder, Osteoarthritis (OA), Skin Disorder, Sleep Apnea/ CPAP/BIPAP, Syncope Additional Past Medical History / Comment(s): Stress test 2 weeks ago negative, parkinson's disease with levadopa pump, NIDDM type II, "leaky" heart valve, recently having some difficulty with swallowing-ENT thought due to breathing difficulties-pt has had esophageal dilations in the past, SOB past couple months worse lately, TIA in 2003, skin cancer with multiple removals, AINSLEY with CPAP used in the past, diverticular disease, benign colon polyps, arthritis bilateral knees and hips, UTIs, syncopal episodes. History of Any Multi-Drug Resistant Organisms: None Reported Past Surgical History: Coronary Bypass/CABG, Heart Catheterization, Joint Replacement, Orthopedic Surgery Additional Past Surgical History / Comment(s): 5vessel bypass 1988 at [facility] in [place]; 2008 cardiac cath tx medically, bilateral knee replacements with L knee revision, bilateral rotator cuff repair, colonoscopy with benign polypectomy, EGD with dilation, bilateral cataract removal with lens implants., Past Anesthesia/Blood Transfusion Reactions: No Reported Reaction Past Psychological History: No Psychological Hx Reported Smoking Status: Never smoker Past Alcohol Use History: Occasional Past Drug Use History: None Reported - Past Family History Father Family Medical History: Myocardial Infarction ([place]) Additional Family Medical History / Comment(s): FATHER PASSED AT 38 YR. General Exam General appearance: alert, in no apparent distress Head exam: Present: atraumatic, normocephalic Eye exam: Present: normal appearance, PERRL ENT exam: Present: normal exam Neck exam: Present: normal inspection. Absent: tenderness, meningismus Respiratory exam: Present: rales. Absent: respiratory distress Cardiovascular Exam: Present: normal rhythm, bradycardia GI/Abdominal exam: Present: soft. Absent: distended, tenderness Extremities exam: Present: normal inspection Neurological exam: Present: alert, oriented X3. Absent: motor sensory deficit Psychiatric exam: Present: normal affect, normal mood Skin exam: Present: warm, dry, intact. Absent: cyanosis, diaphoretic Course Vital Signs 01/02/18 01/02/18 19:46 21:36 Temperature 97.2 F L Pulse Rate 44 L 49 L Respiratory 20 Rate Blood Pressure 148/79 148/79 O2 Sat by Pulse 97 100 Oximetry EKG Findings - EKG Comments: EKG Findings:: EKG shows atrial flutter with variable AV block right bundle branch block, left anterior fascicular block consistent with bifascicular block , ventricular rate 39, QRS duration 140, QTC 429, no ST segment elevation. EKG similar compared to that in August 2017. Medical Decision Making - Medical Decision Making 77-year-old male presenting as transfer for evaluation of CHF, and bradycardia. EKG is not significantly changed from prior. Laboratory studies will be obtained in the emergency department and repeat cardiac enzymes after admission. Physician from outside hospital did speak with cardiology who recommended transfer. I spoke with Dr. Ramos, regarding the bradycardia. Patient will be admitted, blood pressure stable. - Lab Data Result diagrams: 01/02/18 21:28 Lab Results 01/02/18 Range/Units 21:28 WBC 5.9 (3.8-10.6) k/uL RBC 4.65 (4.30-5.90) m/uL Hgb 13.3 (13.0-17.5) gm/dL Hct 42.1 (39.0-53.0) % MCV 90.3 (80.0-100.0) fL MCH 28.5 (25.0-35.0) pg MCHC 31.6 (31.0-37.0) g/dL RDW 14.8 (11.5-15.5) % Plt Count 239 (150-450) k/uL Neutrophils % 64 % Lymphocytes % 23 % Monocytes % 8 % Eosinophils % 2 % Basophils % 0 % Neutrophils # 3.8 (1.3-7.7) k/uL Lymphocytes # 1.3 (1.0-4.8) k/uL Monocytes # 0.5 (0-1.0) k/uL Eosinophils # 0.1 (0-0.7) k/uL Basophils # 0.0 (0-0.2) k/uL Hypochromasia Slight Poikilocytosis Slight Disposition Clinical Impression: Congestive heart failure, Bradycardia Disposition: ADMITTED IP TO THIS [facility] Condition: Stable Referrals: Magnus Craven DO [Primary Care Provider] - 1-2 days Decision to Admit Reason: Admit from EC Decision Date: 01/02/18 Decision Time: 21:44
[2018-01-02 21:47] LABS: ALT 15 U/L (21-72); AST 24 U/L (17-59); Albumin 3.9 g/dL (3.5-5.0); Alkaline Phosphatase 76 U/L (38-126); Anion Gap 10 mmol/L; Blood Urea Nitrogen 18 mg/dL (9-20); Calcium 9.2 mg/dL (8.4-10.2); Carbon Dioxide 27 mmol/L (22-30); Chloride 104 mmol/L (98-107); Glucose 149 mg/dL (74-99); Sodium 141 mmol/L (137-145); Total Bilirubin 0.9 mg/dL (0.2-1.3); Total Protein 6.8 g/dL (6.3-8.2)
[2018-01-02 23:47] LABS: Troponin I 0.061 ng/mL (0.000-0.034)
[2018-01-03] MEDS ORDERED: IPRATROPIUM-ALBUTEROL 3 ML NEB INHALATION PRN (01:02)
[2018-01-03] MEDS ORDERED: traMADol 50 MG TAB PO PRN (01:02)
--- NOTE | 2018-01-03 04:35 | HP ---
HISTORY AND PHYSICAL DATE OF ADMISSION: 01/02/18 CHIEF COMPLAINT: Shortness of breath. HISTORY OF PRESENT ILLNESS: This 77-year-old gentleman with a past history of fibrillation, CAD, history of congestive heart failure with chronic diastolic dysfunction, history of diabetes , GERD, hypertension, history of DJD, history of sleep apnea, history of Parkinson's being followed by Dr. Castro Norman in the outpatient setting was admitted, referred from [facility] with complaints of shortness of breath. The patient apparently was taking Coumadin. Level is being checked. The patient has history atrial ablation and CHF also. The patient also complains of some dysphagia. The patient also had Parkinson disease and also had a J-tube with antiparkinson medication on pump at this time. Apparently stress test was negative for 2 weeks. The patient had levodopa pump and the patient also had apparently leaking heart valve also. Apparently, ablation has been done at [place]. The results not available at this time. There is no history of fever, rigors or chills. No history of headache, loss of consciousness. Patient complains of cough also. Patient was also noted to have bradycardia from [place] and Dr. Hilliard was also called and the case was discussed with him as well. Heart rate is now 47. EKG shows atrial flutter with varying block. PAST MEDICAL HISTORY: Atrial fibrillation, CAD, CVA, TIA, history of myocardial infarction, stenting of the recently, history of GERD, hypertension, history of DJD, history of CAD, CABG, cardiac catheterization and stent. MEDICATIONS ARE: Reviewed and include: 1. Prednisone 20 mg q.48 hours. 2. Nitrostat 0.4 sublingual p.r.n. 3. Lantus 12 units insulin subcu daily. 4. Vitamin D3 5000 daily. 5. Xanax 0.5 q.6h p.r.n. 6. Comtan 200 mg p.o. t.i.d. 7. Aricept 10 mg q.h.s. 8. Albuterol and Atrovent updraft q.i.d. and p.r.n. 9. Humalog q.a.c. and q.h.s. 10.Metformin 1000 mg p.o. b.i.d. 11.Zantac 150 mg p.o. b.i.d. 12.Maalox 30 mL q.4h p.r.n. 13.Claritin 10 mg p.o. daily. 14.Ultram 50 mg q.6h p.r.n. 15.Lipitor 40 mg q.h.s. 16.Lasix 40 mg p.o. b.i.d. 17.Plavix 75 mg p.o. daily. 18.Levodopa carbidopa that is duo dopa pump 1 dose daily. 19.Coumadin 5 mg p.o. q.h.s. 20.Prinivil 10 mg p.o. daily. 21.Imdur 30 mg p.o. q.a.m. ALLERGIES: ARE BENADRYL. FAMILY HISTORY: History of myocardial infarction in the family. SOCIAL HISTORY: No history of smoking. No history of alcohol intake. REVIEW OF SYSTEMS: ENT diminished vision, diminished hearing. Cardiovascular: As mentioned earlier. Respiratory: As mentioned earlier. GI: As mentioned earlier. no dysuria. Nervous System: As mentioned. ALLERGY/IMMUNOLOGY: No asthma or hayfever. Hematology/Oncology: No history of anemia. Musculoskeletal: As mentioned earlier. Endocrine as mentioned earlier. Constitutional: As mentioned earlier. Dermatology: Negative. Rheumatology: Negative. Psychiatry: As mentioned earlier. PHYSICAL EXAMINATION: Blood pressure 137/69, respiration 18, temperature 97 degrees, pulse ox 96% on 2 L. HEENT is conjunctivae normal. Oral mucosa moist. Neck is jugular venous distention at the root of the neck. Breathing efforts are markedly increased. CARDIOVASCULAR: S1, S2 irregular. Ejection systolic murmur present. No S3. No S4. Respiration: Breath sounds diminished in the bases. Bilateral scattered rhonchi and expiratory wheezing and crackles. ABDOMEN: Soft, nontender. No mass palpable. Legs minimal edema. Nervous system: Higher functions as mentioned earlier. Moves all 4 limbs. Diffuse weakness and diffuse tremors present. Tone is also increased. Please note abdomen status post J- tube. Skin: No ulcer, rash, bleeding already mentioned. Joint: No active deforming arthropathy. Lymphatics: No lymph nodes palpable in the neck, axillae or groin. LAB: CBC within normal limits. Glucose 149, CK-MB 3 and troponin 0.061. ASSESSMENT: 1. Shortness of breath with possible congestive heart failure acute exacerbation with acute on chronic diastolic dysfunction. 2. Atrial flutter with varying block with bradycardia. 3. Dysphagia. 4. Parkinson disease with gait dysfunction. 5. Status post J-tube for Levodopa, carbidopa pump. 6. Troponin 0.061 indeterminate. 7. History of coronary artery disease/coronary artery bypass grafting stent. 8. History of cerebrovascular accident, transient ischemic attack. 9. Diabetes mellitus Type 2. 10.History of gastroesophageal reflux disease. 11.Hypertension. 12.History of degenerative joint disease. 13.History of sleep apnea. 14.History of syncope. 15.FULL CODE. RECOMMENDATIONS AND DISCUSSION: In this 77-year-old gentleman who presented with multiple complex medical issues , we will monitor the patient closely. Continue the current management and symptomatic treatment. We will monitor the fluid balance and electrolytes balance closely. I would recommend intravenous diuretics and continue to monitor. Telemetry will be instituted and cardiology will be consulted. Beta blockers will be held. I would also recommend to initiate continue with home medication with Duopa pump and continue to monitor. Prognosis guarded because of multiple complex medical issues. Continue the rest of the medications. Discussed with the patient and family, understands and agrees and further recommendations to follow. We will also obtain home medications. Copy of dictation being forwarded to Castro Norman who is the primary physician. See orders for further details. Prognosis guarded. The patient continues to be NO CODE at this time and consultation with Cardiology has been arranged. See orders for further details. MMODL / IJN: [id number] / MTDD
[2018-01-03 05:43] LABS: Creatine Kinase MB 2.1 ng/mL (0.0-2.4)
[2018-01-03 05:55] LABS: Troponin I 0.056 ng/mL (0.000-0.034)
[2018-01-03 05:57] LABS: Glucose,Whole Blood 147 mg/dL (75-99)
[2018-01-03] MEDS: IPRATROPIUM-ALBUTEROL 3 ML NEB INHALATION SCH ×4 (07:06→19:54)
[2018-01-03] MEDS ORDERED: INSULIN DETEMIR 100 UNIT/ML 10 ML VIAL SQ SCH (09:00)
[2018-01-03] MEDS: ENTACAPONE 200 MG TAB PO SCH ×3 (09:24→21:08)
[2018-01-03] MEDS: FAMOTIDINE 20 MG TAB PO SCH ×2 (09:24→21:08)
[2018-01-03] MEDS: metFORMIN 500 MG TAB PO SCH ×2 (09:24→17:30)
[2018-01-03] MEDS: CARBIDOPA PEG/G-TUBE SCH (09:24)
[2018-01-03] MEDS: LEVODOPA PEG/G-TUBE SCH (09:24)
[2018-01-03] MEDS: CLOPIDOGREL 75 MG TAB PO SCH (09:24)
[2018-01-03] MEDS: ISOSORBIDE MONONITRATE ER 30 MG TAB.ER.24H PO SCH (09:25)
[2018-01-03] MEDS: LISINOPRIL 10 MG TAB PO SCH (09:25)
[2018-01-03] MEDS: FUROSEMIDE 40 MG TAB PO SCH ×2 (09:25→17:30)
[2018-01-03] MEDS: predniSONE 20 MG TAB PO SCH (09:35)
[2018-01-03 11:25] LABS: Creatine Kinase MB 2.2 ng/mL (0.0-2.4)
[2018-01-03 11:30] LABS: Troponin I 0.053 ng/mL (0.000-0.034)
[2018-01-03 11:42] LABS: Hemoglobin A1C 7.8 % (4.0-6.0)
[2018-01-03 11:52] LABS: Glucose,Whole Blood 241 mg/dL (75-99)
[2018-01-03] MEDS: INSULIN ASPART 100 UNIT/ML 1 ML 10 ML VIAL SQ SCH ×3 (12:40→21:08)
--- NOTE | 2018-01-03 13:18 | P.CRDCN ---
History of Present Illness Consult date: 01/03/18 Requesting physician: Link Bates Reason for Consult (text): CHF, bradycardia Chief complaint: shortness of breath History of present illness: This is a pleasant 77-year-old gentleman who follows with Dr. Hilliard in the office. He has history of Parkinson's, diabetes, dyslipidemia, CAD with prior CABG with most recent cardiac catheterization in August 2017 with PTCA of SVG to diagnose branch and stent placement to SVG to the OM. He was sent to the emergency department at [facility] by his primary care provider presenting for a blood draw and being noticeably short of breath. The patient is quite drowsy and the is answering most questions. According to the , patient has been having worsening shortness of breath over the last month with wheezing and a cough with clear sputum. He has also been having difficulty swallowing and has been evaluated by Osmar moreno to chop his food intake smaller bites. The denies episodes of PND and is unclear whether the patient is having orthopnea as he's been sleeping in an inclined hospital bed since August 2016. Temperature presentation, chest x-ray showed cardiomegaly with no overt pulmonary vascular congestion, focal pneumonia, gross pleural effusion or pneumothorax with minimal density at the lung base most likely representing atelectasis. EKG showed atrial flutter with bradycardia. Laboratory values showed a magnesium of 1.6 which was replaced, BUN of 18, creatinine 1.0. Troponins came back at 0.061, 0.056 and 0.053. Upon examination, patient is resting comfortably in bed with head of bed flat. He does not appear to be in any acute distress. He is quite drowsy, the feels this is related to receiving his Parkinson's medication later than usual. Per the , patient has not had complaints of chest discomfort, dizziness, lightheadedness, he's had no syncope and has no lower extremity edema. Past Medical History Past Medical History: Atrial Fibrillation, Coronary Artery Disease (CAD), Cancer , CVA/TIA, Diabetes Mellitus, GERD/Reflux, Hypertension, Musculoskeletal Disorder, Neurologic Disorder, Osteoarthritis (OA), Skin Disorder, Sleep Apnea/ CPAP/BIPAP, Syncope Additional Past Medical History / Comment(s): Stress test 2 weeks ago negative, parkinson's disease with levadopa pump, NIDDM type II, "leaky" heart valve, recently having some difficulty with swallowing-ENT thought due to breathing difficulties-pt has had esophageal dilations in the past, SOB past couple months worse lately, TIA in 2003, skin cancer with multiple removals, AINSLEY with CPAP used in the past, diverticular disease, benign colon polyps, arthritis bilateral knees and hips, UTIs, syncopal episodes. History of Any Multi-Drug Resistant Organisms: None Reported Past Surgical History: Coronary Bypass/CABG, Heart Catheterization, Joint Replacement, Orthopedic Surgery Additional Past Surgical History / Comment(s): 5vessel bypass 1988 at [facility] in [place]; 2008 cardiac cath tx medically, bilateral knee replacements with L knee revision, bilateral rotator cuff repair, colonoscopy with benign polypectomy, EGD with dilation, bilateral cataract removal with lens implants., Past Anesthesia/Blood Transfusion Reactions: No Reported Reaction Past Psychological History: No Psychological Hx Reported Additional Psychological History / Comment(s): Pt resides with his spouse. He usually gets around in an electric scooter. On good days, he can use a walker. He has a private hire nurse 2 times a week. His spouse and daughters assist him on the other days. Spouse drives him to [employer]. Smoking Status: Never smoker Past Alcohol Use History: Occasional Past Drug Use History: None Reported - Past Family History Father Family Medical History: Myocardial Infarction ([place]) Additional Family Medical History / Comment(s): FATHER PASSED AT 38 YR. Medications and Allergies Home Medications Medication Instructions Recorded Confirmed Type Entacapone [Comtan] 200 mg PO TID 05/04/14 01/02/18 History Isosorbide Mononitrate ER [Imdur] 30 mg PO QAM 05/04/14 01/02/18 History Ranitidine HCl [Zantac] 150 mg PO BID 05/04/14 01/02/18 History Warfarin [Coumadin] 5 mg PO HS 05/04/14 01/02/18 History metFORMIN HCL 1,000 mg PO BID 05/04/14 01/02/18 History Cholecalciferol [Vitamin D3] 5,000 unit PO DAILY 09/10/17 01/02/18 History Donepezil [Aricept] 10 mg PO HS 09/10/17 01/02/18 History Lisinopril [Prinivil] 10 mg PO DAILY 09/10/17 01/02/18 History Loratadine [Claritin] 10 mg PO DAILY 09/10/17 01/02/18 History predniSONE 20 mg PO Q48H 09/10/17 01/02/18 History ALPRAZolam [Xanax] 0.25 mg PO Q6HR PRN #20 tab 09/13/17 01/02/18 Rx Atorvastatin [Lipitor] 40 mg PO HS tab 09/13/17 01/02/18 Rx Clopidogrel [Plavix] 75 mg PO DAILY tab 09/13/17 01/02/18 Rx INSULIN LISPRO (HumaLOG) [humaLOG] 0 unit SQ ACHS #1 vial 09/13/17 01/02/18 Rx Ipratropium-Albuterol Nebulize 3 ml INHALATION Q4H PRN ampul.neb 09/13/1701/02 Rx [Duoneb 0.5 mg-3 mg/3 ml Soln] Ipratropium-Albuterol Nebulize 3 ml INHALATION RT-QID ampul.neb 09/13/17 Rx [Duoneb 0.5 mg-3 mg/3 ml Soln] Mag Hydrox/Al Hydrox/Simeth 30 ml PO Q4HR PRN cup 09/13/17 01/02/18 Rx [Maalox] Nitroglycerin Sl Tabs [Nitrostat] 0.4 mg SUBLINGUAL Q5M PRN tab 09/13/17 Rx traMADol HCl [Ultram] 50 mg PO Q6H PRN #20 tab 09/13/17 01/02/18 Rx Carbidopa/Levodopa [Duopa 4.63 1 dose PEG/G-TUBE DAILY@0500 09/16/17 01/02/18 Rx Mg-20 Mg/Ml Susp] Furosemide [Lasix] 40 mg PO BID@0900,1600 tab 09/16/17 01/02/18 Rx Allergies Allergy/AdvReac Type Severity Reaction Status Date / Time diphenhydramine HCl AdvReac Hallucinati Verified 01/02/18 19:54 [From Benadryl] ons Physical Exam Vitals: Vital Signs Temp Pulse Pulse Resp BP BP Pulse Ox 01/03/18 11:39 52 L 01/03/18 11:28 50 L 01/03/18 08:00 97.0 F L 59 L 154/93 95 01/03/18 07:25 52 L 01/03/18 07:17 48 L 98 01/03/18 04:00 97.6 F 45 L 18 138/74 98 01/03/18 00:00 41 L 18 01/02/18 22:30 97.0 F L 41 L 18 139/74 97 01/02/18 22:04 42 L 18 137/69 96 01/02/18 21:36 49 L 20 138/78 100 01/02/18 19:46 97.2 F L 44 L 148/79 97 Intake and Output 01/02/18 01/03/18 01/03/18 22:59 06:59 14:59 Other: Voiding Method Urinal Urinal Diaper Diaper Incontinent # Voids 1 Weight 85.275 kg 77.5 kg PHYSICAL EXAMINATION: HEENT: Head is atraumatic, normocephalic. Pupils equal, round. Neck is supple. There is no elevated jugular venous pressure. HEART EXAMINATION: Heart sounds irregularly irregular, S1 and S2 normal. No murmur or gallop heard. CHEST EXAMINATION: Lungs reveal diminished air entry bilaterally. No chest wall tenderness is noted on palpation or with deep breathing. ABDOMEN: Soft, nontender. Bowel sounds are heard. No organomegaly noted. Medication pump noted. EXTREMITIES: 2+ peripheral pulses with no evidence of peripheral edema and no calf tenderness noted. NEUROLOGIC patient is awake, drowsy and oriented. . Results 01/02/18 21:28 01/02/18 21:28 Cardiac Enzymes 01/02/18 01/02/18 01/03/18 Range/Units 21:28 21:28 04:00 AST 24 (17-59) U/L CK-MB (CK-2) 3.0 H* 2.1 (0.0-2.4) ng/mL Troponin I 0.061 H* 0.056 H* (0.000-0.034) ng/mL 01/03/18 Range/Units 09:58 AST (17-59) U/L CK-MB (CK-2) 2.2 (0.0-2.4) ng/mL Troponin I 0.053 H* (0.000-0.034) ng/mL Coagulation 01/03/18 Range/Units 04:08 PT 18.0 H (9.0-12.0) sec CBC 01/02/18 Range/Units 21:28 WBC 5.9 (3.8-10.6) k/uL RBC 4.65 (4.30-5.90) m/uL Hgb 13.3 (13.0-17.5) gm/dL Hct 42.1 (39.0-53.0) % Plt Count 239 (150-450) k/uL Comprehensive Metabolic Panel 01/02/18 Range/Units 21:28 Sodium 141 (137-145) mmol/L Potassium 4.0 (3.5-5.1) mmol/L Chloride 104 (98-107) mmol/L Carbon Dioxide 27 (22-30) mmol/L BUN 18 (9-20) mg/dL Creatinine 1.00 (0.66-1.25) mg/dL Glucose 149 H (74-99) mg/dL Calcium 9.2 (8.4-10.2) mg/dL AST 24 (17-59) U/L ALT 15 L (21-72) U/L Alkaline Phosphatase 76 (38-126) U/L Total Protein 6.8 (6.3-8.2) g/dL Albumin 3.9 (3.5-5.0) g/dL Current Medications Generic Name Dose Route Start Last Admin Trade Name Freq PRN Reason Stop Dose Admin Albuterol/Ipratropium 3 ml 01/03/18 08:00 01/03/18 11:26 Duoneb 0.5 Mg-3 Mg/3 Ml Soln INHALATION 3 ml RT-QID TERE Administration Albuterol/Ipratropium 3 ml 01/03/18 01:02 Duoneb 0.5 Mg-3 Mg/3 Ml Soln INHALATION RT-Q4H PRN Shortness Of Breath Or Wheezing Atorvastatin Calcium 40 mg 01/03/18 21:00 Lipitor PO HS TERE Clopidogrel Bisulfate 75 mg 01/03/18 09:00 01/03/18 09:24 Plavix PO 75 mg DAILY TERE Administration Donepezil HCl 10 mg 01/03/18 21:00 Aricept PO HS TERE Entacapone 200 mg 01/03/18 09:00 01/03/18 09:24 Comtan PO 200 mg TID TERE Administration Famotidine 20 mg 01/03/18 09:00 01/03/18 09:24 Pepcid PO 20 mg BID TERE Administration Furosemide 40 mg 01/03/18 09:00 01/03/18 09:25 Lasix PO 40 mg BID@0900,1600 TERE Administration Isosorbide Mononitrate 30 mg 01/03/18 09:00 01/03/18 09:25 Imdur PO 30 mg QAM TERE Administration Lisinopril 10 mg 01/03/18 09:00 01/03/18 09:25 Zestril PO 10 mg DAILY TERE Administration Metformin HCl 1,000 mg 01/03/18 07:30 01/03/18 09:24 Glucophage PO 1,000 mg AC-BID TERE Administration Naloxone HCl 0.2 mg 01/02/18 21:34 Narcan IV Q2M PRN Opioid Reversal Nitroglycerin 0.4 mg 01/02/18 21:44 Nitrostat SUBLINGUAL Q5M PRN Chest Pain Carbidopa/Levodopa [ 1 dose 01/03/18 05:00 01/03/18 09:24 Duopa 4.63 Mg-20 Mg/ PEG/G-TUBE 1 dose Ml Susp] DAILY@0500 TERE Administration Prednisone 20 mg 01/03/18 09:00 01/03/18 09:35 PO 20 mg Q48H TERE Administration Tramadol HCl 50 mg 01/03/18 01:02 Ultram PO Q6H PRN Pain Warfarin Sodium 5 mg 01/03/18 21:00 Coumadin PO HS TERE Intake and Output 01/02/18 01/03/18 01/03/18 22:59 06:59 14:59 Other: Voiding Method Urinal Urinal Diaper Diaper Incontinent # Voids 1 Weight 85.275 kg 77.5 kg 01/02/18 21:28 01/02/18 21:28 EKG Interpretations (text) Atrial flutter with bradycardia Assessment and Plan Assessment: #1 symptoms of progressively worsening shortness of breath with wheezing and productive cough with normal BNP for age and no failure per Xray #2 history of CAD with prior CABG and stenting of vein graft to the OM and PTCA of the vein graft to the diagonal #3 chronic atrial flutter, with slow ventricular response, anticoagulated on Coumadin #4 Parkinson's disease Plan: From Cardiology's perspective, tainted 2-D echo with Doppler. At this time we do not feel the patient is in heart failure. We recommend a pulmonary consult as patient is wheezy. Further recommendations to follow. FLAKER OPERATOR note has been reviewed, I agree with a documented findings and plan of care. Patient was seen and examined.
[2018-01-03 13:59] VITALS: BMI 25.9
[2018-01-03 16:55] LABS: Glucose,Whole Blood 224 mg/dL (75-99)
--- NOTE | 2018-01-03 18:33 | P.PN ---
Subjective Progress Note Date: 01/03/18 Progress note being dictated for Dr. Bates Interval history: This a 77-year-old gentleman admitted with shortness of breath , possible acute CHF exacerbation, atrial flutter with variable block with accompanying bradycardia dysphagia, Parkinson's and multiple other medical issues. Telemetry reporting atrial flutter with heart rates 50s to 60s. Denies chest pain, palpitations. Complains of shortness of breath. INR 2. Troponins 0.061, 0.056, 0.053. Review of systems: CONSTITUTIONAL: fatigue. HEENT: Diminished vision, diminished hearing CARDIOVASCULAR: No chest pain, as mentioned earlier PULMONARY: Complains of shortness of breath, occasional cough, no hemoptysis. GASTROINTESTINAL: No diarrhea, no nausea, no vomiting, no abdominal pain. Normoactive bowel sounds. ALLERGY/IMMUNOLOGY: No asthma, no hayfever HEMATOLOGICAL: Denies any bleeding or petechiae, no history of anemia. GENITOURINARY: Denies any burning micturition, frequency, or urgency. ENDOCRINE: Denies any polyuria or polydipsia. PSYCHIATRIC: No anxiety, no depression Active Medications Albuterol/Ipratropium (Duoneb 0.5 Mg-3 Mg/3 Ml Soln) 3 ml INHALATION RT-QID [facility] Last Admin: 01/03/18 15:25 Dose: 3 ml Albuterol/Ipratropium (Duoneb 0.5 Mg-3 Mg/3 Ml Soln) 3 ml INHALATION RT-Q4H PRN PRN Reason: Shortness Of Breath Or Wheezing Atorvastatin Calcium (Lipitor) 40 mg PO HS [facility] Clopidogrel Bisulfate (Plavix) 75 mg PO DAILY [facility] Last Admin: 01/03/18 09:24 Dose: 75 mg Donepezil HCl (Aricept) 10 mg PO HS [facility] Entacapone (Comtan) 200 mg PO TID [facility] Last Admin: 01/03/18 17:31 Dose: 200 mg Famotidine (Pepcid) 20 mg PO BID [facility] Last Admin: 01/03/18 09:24 Dose: 20 mg Furosemide (Lasix) 40 mg PO BID@0900,1600 [facility] Last Admin: 01/03/18 17:30 Dose: 40 mg Insulin Aspart (Novolog) 0 unit SQ ACHS [facility] PRN Reason: Protocol Last Admin: 01/03/18 17:30 Dose: 3 unit Isosorbide Mononitrate (Imdur) 30 mg PO QAM [facility] Last Admin: 01/03/18 09:25 Dose: 30 mg Lisinopril (Zestril) 10 mg PO DAILY [facility] Last Admin: 01/03/18 09:25 Dose: 10 mg Metformin HCl (Glucophage) 1,000 mg PO AC-BID [facility] Last Admin: 01/03/18 17:30 Dose: 1,000 mg Naloxone HCl (Narcan) 0.2 mg IV Q2M PRN PRN Reason: Opioid Reversal Nitroglycerin (Nitrostat) 0.4 mg SUBLINGUAL Q5M PRN PRN Reason: Chest Pain Carbidopa/Levodopa [ Duopa 4.63 Mg-20 Mg/Ml Susp] 1 dose PEG/G-TUBE DAILY@0500 [facility] Last Admin: 01/03/18 09:24 Dose: 1 dose Prednisone () 20 mg PO Q48H [facility] Last Admin: 01/03/18 09:35 Dose: 20 mg Tramadol HCl (Ultram) 50 mg PO Q6H PRN PRN Reason: Pain Warfarin Sodium (Coumadin) 5 mg PO [facility] Objective - Vital Signs Vital signs: Vital Signs Temp 97.3 F L 01/03/18 15:36 Pulse 54 L 01/03/18 15:36 Resp 18 01/03/18 15:36 BP 119/55 01/03/18 15:36 Pulse Ox 94 L 01/03/18 15:36 Intake & Output 01/02/18 01/03/18 01/03/18 18:59 06:59 18:59 Weight 77.5 kg 77.5 kg Other: Voiding Method Urinal Urinal Diaper Diaper Incontinent # Voids 1 1 - Exam PHYSICAL EXAM: VITAL SIGNS: As above GENERAL: Sitting up in bed, tired appearing HEENT: Conjunctivae normal. eyes normal. NECK: Mild JVD-root. No thyroid enlargement. No LNs CARDIOVASCULAR: Irregular ,S1, S2 muffled. Positive systolic murmur. RESPIRATION: Breath sounds diminished in the bases. Occasional scattered rhonchi or crackles. ABDOMEN: Soft, nontender . No guarding. no masses palpable. Bowel sounds heard. NG tube present LEGS: Mild edema. PSYCHIATRY: Alert and oriented -3, mood and affect normal. NERVOUS SYSTEM: Cranial N 2-12 grossly normal. Moves all 4 limbs. Diffuse weakness No focal deficits. No sensory deficit. Parkinson tremors at rest present Skin: no ulcer no rash Joints: No active swelling. No inflammation. Lymphatic system. No LN neck axilla or groin. - Labs CBC & Chem 7: 01/02/18 21:28 01/02/18 21:28 Labs: Abnormal Lab Results - Last 24 Hours (Table) 01/02/18 01/02/18 01/03/18 Range/Units 21:28 21:28 04:00 PT (9.0-12.0) sec INR (<1.2) Glucose 149 H (74-99) mg/dL POC Glucose (mg/dL) (75-99) mg/dL Hemoglobin A1c (4.0-6.0) % ALT 15 L (21-72) U/L CK-MB (CK-2) 3.0 H* (0.0-2.4) ng/mL Troponin I 0.061 H* 0.056 H* (0.000-0.034) ng/mL 01/03/18 01/03/18 01/03/18 Range/Units 04:00 04:08 05:54 PT 18.0 H (9.0-12.0) sec INR 2.0 H (<1.2) Glucose (74-99) mg/dL POC Glucose (mg/dL) 147 H (75-99) mg/dL Hemoglobin A1c 7.8 H (4.0-6.0) % ALT (21-72) U/L CK-MB (CK-2) (0.0-2.4) ng/mL Troponin I (0.000-0.034) ng/mL 01/03/18 01/03/18 01/03/18 Range/Units 09:58 11:49 16:52 PT (9.0-12.0) sec INR (<1.2) Glucose (74-99) mg/dL POC Glucose (mg/dL) 241 H 224 H (75-99) mg/dL Hemoglobin A1c (4.0-6.0) % ALT (21-72) U/L CK-MB (CK-2) (0.0-2.4) ng/mL Troponin I 0.053 H* (0.000-0.034) ng/mL Assessment and Plan Assessment: 1. Shortness of breath and possible congestive heart failure with acute exacerbation, acute on chronic diastolic dysfunction 2. Atrial flutter with variable block with bradycardia 3. Dysphagia 4. Parkinson's disease with gait dysfunction 5. Status post J-tube per levodopa, carbidopa pump 6 troponin 0.061 indeterminate 7. CAD, history of CABG, stent 8. CVA TIA history 9 diabetes mellitus type 2 10. Gastroesophageal reflux disease Plan: Continue on current medication regime ,monitoring and symptomatic treatments. Echo pending. Diuretics as per cardiology. Strict I&Os. Close monitoring of electrolyte Repeat labs ordered for a.m. chest x-ray in a.m. Further recommendations to follow. The impression and plan of care has been dictated as directed. : I performed a history and examination of this patient, discussed the same with the dictator. I agree with the dictator's note ,documented as a scribe. Any additional findings or plans will be noted.
[2018-01-03 20:54] LABS: Glucose,Whole Blood 141 mg/dL (75-99)
[2018-01-03] MEDS: DONEPEZIL 10 MG TAB PO SCH (21:08)
[2018-01-03] MEDS: WARFARIN 5 MG TAB PO SCH (21:08)
[2018-01-03] MEDS: ATORVASTATIN 40 MG TAB PO SCH (21:08)
[2018-01-04 06:01] LABS: Glucose,Whole Blood 127 mg/dL (75-99)
[2018-01-04] MEDS: INSULIN ASPART 100 UNIT/ML 1 ML 10 ML VIAL SQ SCH ×4 (06:07→20:59)
[2018-01-04] MEDS: LEVODOPA PEG/G-TUBE SCH (06:47)
[2018-01-04] MEDS: CARBIDOPA PEG/G-TUBE SCH (06:47)
[2018-01-04] MEDS: metFORMIN 500 MG TAB PO SCH ×2 (06:48→17:39)
[2018-01-04 06:53] LABS: Basophils % (A) 0 %; Eosinophils # (A) 0.1 k/uL (0-0.7); Eosinophils % (A) 1 %; HCT 41.5 % (39.0-53.0); HGB 12.6 gm/dL (13.0-17.5); Hypochromasia Moderate; Lymphocytes # (A) 1.4 k/uL (1.0-4.8); Lymphocytes % (A) 15 %; MCH 28.1 pg (25.0-35.0); MCHC 30.3 g/dL (31.0-37.0); MCV 92.5 fL (80.0-100.0); Mean Platelet Volume 7.7; Monocytes # (A) 0.7 k/uL (0-1.0); Monocytes % (A) 7 %; Neutrophils % (A) 75 %; Platelet Count 240 k/uL (150-450); RBC 4.48 m/uL (4.30-5.90); RDW 14.9 % (11.5-15.5); WBC 9.3 k/uL (3.8-10.6)
[2018-01-04 07:04] LABS: INR 1.5 (<1.2); Prothrombin Time 14.1 sec (9.0-12.0)
[2018-01-04 07:15] LABS: Anion Gap 11 mmol/L; Blood Urea Nitrogen 26 mg/dL (9-20); Calcium 9.6 mg/dL (8.4-10.2); Carbon Dioxide 27 mmol/L (22-30); Chloride 103 mmol/L (98-107); Glucose 123 mg/dL (74-99); Magnesium 1.5 mg/dL (1.6-2.3); Sodium 141 mmol/L (137-145)
[2018-01-04 07:27] LABS: Potassium 3.9 mmol/L (3.5-5.1)
--- NOTE | 2018-01-04 07:27 | XR ---
EXAMINATION TYPE: XR chest 2V DATE OF EXAM: 01/04/2018 HISTORY: CHF. REFERENCE: Previous study dated 09/15/2017. FINDINGS: There has been a midline sternotomy. The heart is enlarged. The lungs are overinflated. There is mild vascular congestion and subtle inter stitial change. IMPRESSION: 1. COPD. 2. I COULD NOT EXCLUDE SOME DEGREE OF CONGESTIVE HEART FAILURE.
[2018-01-04] MEDS: IPRATROPIUM-ALBUTEROL 3 ML NEB INHALATION SCH ×4 (07:56→19:18)
--- NOTE | 2018-01-04 09:00 | ECHOF ---
Referral Reason:chf MEASUREMENTS -------- HEIGHT: 172.7 cm WEIGHT: 77.1 kg BP: 110/55 RVIDd: 3.5 cm (< 3.3) IVSd: 1.7 cm (0.6 - 1.1) LVIDd: 5.7 cm (3.9 - 5.3) LVPWd: 1.6 cm (0.6 - 1.1) IVSs: 2.1 cm LVIDs: 4.3 cm LVPWs: 2.2 cm LA Diam: 4.4 cm (2.7 - 3.8) LAESV Index (A-L): 46.20 ml/m Ao Diam: 3.7 cm (2.0 - 3.7) AV Cusp: 1.1 cm (1.5 - 2.6) MV EXCURSION: 26.377 mm (> 18.000) MV EF SLOPE: 66 mm/s (70 - 150) EPSS: 0.6 cm AV maxP.14 mmHg AV meanP.59 mmHg RAP: 5.00 mmHg RVSP: 30.35 mmHg FINDINGS -------- This was a technically good study. The left ventricular size is normal. There is severe concentric left ventricular hypertrophy. Ove rall left ventricular systolic function is low-normal with, an EF between 50 - 55 %. The right ventricle is mildly enlarged. LA is severely dilated >40 ml/m2 There is mild to moderate aortic valve sclerosis. There is mild aortic regurgitation. There is mo derate aortic stenosis present. Peak/mean gradient across the Aortic Valve is 43.14mmHg / 22.59mmHg . Mild mitral annular calcification present. There is trace mitral regurgitation. Mild tricuspid regurgitation present. Right ventricular systolic pressure is normal at < 35 mmHg. Trace/mild (physiologic) pulmonic regurgitation. The aortic root is dilated measuring 3.7cm. IVC Not well visulized. There is no pericardial effusion. CONCLUSIONS -------- 1. This was a technically good study. 2. The left ventricular size is normal. 3. There is severe concentric left ventricular hypertrophy. 4. Overall left ventricular systolic function is low-normal with, an EF between 50 - 55 %. 5. The right ventricle is mildly enlarged. 6. LA is severely dilated >40 ml/m2 7. There is mild to moderate aortic valve sclerosis. 8. There is mild aortic regurgitation. 9. There is moderate aortic stenosis present. 10. Peak/mean gradient across the Aortic Valve is 43.14mmHg / 22.59mmHg. 11. Mild mitral annular calcification present. 12. There is trace mitral regurgitation. 13. Mild tricuspid regurgitation present. 14. Right ventricular systolic pressure is normal at < 35 mmHg. 15. Trace/mild (physiologic) pulmonic regurgitation. 16. The aortic root is dilated measuring 3.7cm. 17. IVC Not well visulized. 18. There is no pericardial effusion. SKIRT CLIPPER: Josefa Santiago RDCS
[2018-01-04] MEDS: CLOPIDOGREL 75 MG TAB PO SCH (09:04)
[2018-01-04] MEDS: FAMOTIDINE 20 MG TAB PO SCH ×2 (09:05→20:52)
[2018-01-04] MEDS: ENTACAPONE 200 MG TAB PO SCH ×3 (09:05→20:52)
[2018-01-04] MEDS: LISINOPRIL 10 MG TAB PO SCH (09:06)
[2018-01-04] MEDS: FUROSEMIDE 40 MG TAB PO SCH ×2 (09:06→16:25)
[2018-01-04] MEDS: ISOSORBIDE MONONITRATE ER 30 MG TAB.ER.24H PO SCH (09:06)
[2018-01-04 11:59] LABS: Glucose,Whole Blood 246 mg/dL (75-99)
[2018-01-04] MEDS ORDERED: Magnesium Replacement Protocol 1 EACH MISC MISCELLANE PRN (14:04)
--- NOTE | 2018-01-04 14:08 | P.PN ---
Subjective Progress Note Date: 01/04/18 This is a pleasant 77-year-old gentleman who follows with Dr. Hilliard in the office. He has history of Parkinson's, diabetes, dyslipidemia, CAD with prior CABG with most recent cardiac catheterization in August 2017 with PTCA of SVG to diagnose branch and stent placement to SVG to the OM. He was sent to the emergency department at [facility] by his primary care provider presenting for a blood draw and being noticeably short of breath. The patient is quite drowsy and the is answering most questions. According to the , patient has been having worsening shortness of breath over the last month with wheezing and a cough with clear sputum. He has also been having difficulty swallowing and has been evaluated by Osmar moreno to chop his food intake smaller bites. The denies episodes of PND and is unclear whether the patient is having orthopnea as he's been sleeping in an inclined hospital bed since August 2016. Temperature presentation, chest x-ray showed cardiomegaly with no overt pulmonary vascular congestion, focal pneumonia, gross pleural effusion or pneumothorax with minimal density at the lung base most likely representing atelectasis. EKG showed atrial flutter with bradycardia. Laboratory values showed a magnesium of 1.6 which was replaced, BUN of 18, creatinine 1.0. Troponins came back at 0.061, 0.056 and 0.053. This morning, labs showed magnesium of 1.5 and stable BUN and creatinine. Upon examination, patient is resting comfortably in bed with head of bed flat. He does not appear to be in any acute distress. He is more awake today. His breathing is a bit better. Objective - Vital Signs Vital signs: Vital Signs Temp 96.7 F L 01/04/18 13:15 Pulse 53 L 01/04/18 13:15 Resp 16 01/04/18 13:15 BP 115/63 01/04/18 13:15 Pulse Ox 94 L 01/04/18 13:15 Intake & Output 01/03/18 01/04/18 01/04/18 18:59 06:59 18:59 Intake Total 120 680 Output Total 200 Balance -200 120 680 Weight 77.5 kg 86.3 kg Intake: Oral 120 680 Output: Urine 200 Other: Voiding Method Urinal Urinal Urinal Diaper Diaper Diaper Incontinent Incontinent Incontinent # Voids 1 1 3 # Bowel Movements 1 - Exam PHYSICAL EXAMINATION: HEENT: Head is atraumatic, normocephalic. Pupils equal, round. Neck is supple. There is no elevated jugular venous pressure. HEART EXAMINATION: Heart sounds irregularly irregular, S1 and S2 normal. No murmur or gallop heard. CHEST EXAMINATION: Lungs reveal improved air entry. No chest wall tenderness is noted on palpation or with deep breathing. ABDOMEN: Soft, nontender. Bowel sounds are heard. No organomegaly noted. Medication pump noted. EXTREMITIES: 2+ peripheral pulses with no evidence of peripheral edema and no calf tenderness noted. NEUROLOGIC patient is awake, alert and oriented. - Labs CBC & Chem 7: 01/04/18 06:03 01/04/18 06:03 Labs: Abnormal Lab Results - Last 24 Hours (Table) 01/03/18 01/03/18 01/04/18 Range/Units 16:52 20:52 05:59 Hgb (13.0-17.5) gm/dL MCHC (31.0-37.0) g/dL PT (9.0-12.0) sec INR (<1.2) BUN (9-20) mg/dL Glucose (74-99) mg/dL POC Glucose (mg/dL) 224 H 141 H 127 H (75-99) mg/dL Magnesium (1.6-2.3) mg/dL 01/04/18 01/04/18 01/04/18 Range/Units 06:03 06:03 06:03 Hgb 12.6 L (13.0-17.5) gm/dL MCHC 30.3 L (31.0-37.0) g/dL PT 14.1 H (9.0-12.0) sec INR 1.5 H (<1.2) BUN 26 H (9-20) mg/dL Glucose 123 H (74-99) mg/dL POC Glucose (mg/dL) (75-99) mg/dL Magnesium 1.5 L (1.6-2.3) mg/dL 01/04/18 Range/Units 11:42 Hgb (13.0-17.5) gm/dL MCHC (31.0-37.0) g/dL PT (9.0-12.0) sec INR (<1.2) BUN (9-20) mg/dL Glucose (74-99) mg/dL POC Glucose (mg/dL) 246 H (75-99) mg/dL Magnesium (1.6-2.3) mg/dL Assessment and Plan Assessment: #1 symptoms of progressively worsening shortness of breath with wheezing and productive cough with normal NT proBNP for age and no failure per Xray #2 history of CAD with prior CABG and stenting of vein graft to the OM and PTCA of the vein graft to the diagonal #3 chronic atrial flutter, with slow ventricular response, anticoagulated on Coumadin #4 Parkinson's disease #5 hypomagnesemia Plan: From Cardiology's perspective, the cases were reviewed will continue the same. We will replace magnesium. We feel patient would benefit from a pulmonary consult. Further recommendations to follow. NEUROLOGY TEACHER note has been reviewed, I agree with a documented findings and plan of care. Patient was seen and examined.
[2018-01-04] MEDS: MAGNESIUM SULFATE-D5W PMX 1 GM in DEXTROSE/WATER 1 100ML.BAG IVPB SCH ×2 (15:10→16:24)
[2018-01-04 17:15] LABS: Glucose,Whole Blood 170 mg/dL (75-99)
--- NOTE | 2018-01-04 18:26 | PN ---
PROGRESS NOTE DATE OF SERVICE: 01/04/2018 INTERVAL HISTORY: This is a 77-year-old gentleman admitted with shortness of breath with possible CHF acute exacerbation. Also had atrial flutter with varying block with bradycardia. The patient is still having some shortness of breath, no fever, no cough. PHYSICAL EXAM: Alert and oriented x3. Pulse 50, blood pressure 137/59, respirations 16, temperature 97.1, pulse ox 93% on room air. HEENT is conjunctivae normal. Oral mucosa moist. Neck is no jugular venous distention. CARDIOVASCULAR: S1, S2, muffled. RESPIRATORY: Breath sounds diminished in the bases, bilateral scattered rhonchi and basilar crackles. Abdomen is soft, nontender. LEGS: No edema, no swelling. NERVOUS SYSTEM: No focal deficits. LABS: WBC is 9.3, hemoglobin is 12.6, INR 1.5, sodium 141. ASSESSMENT: 1. Shortness of breath, possible congestive heart failure acute exacerbation with acute on chronic diastolic dysfunction. 2. Atrial flutter with varying block with bradycardia. 3. Dysphagia. 4. Parkinson's disease with gait dysfunction. 5. Status post J-tube for levodopa carbidopa infusion pump. 6. Troponin 0.061, indeterminate. 7. Coronary artery disease, coronary artery bypass grafting. 8. History of cerebrovascular accident, transient ischemic attack history. 9. Diabetes mellitus type 2. 10.Gastroesophageal reflux disease. RECOMMENDATION: Recommend to continue current management with monitoring and symptomatic treatment. Otherwise at this time, IV diuretics. Closely follow with Cardiology. Guarded prognosis because of multiple complex medical issues. Increase ambulation. Guarded prognosis. Further recommendations to follow. MMODL / IJN: [id number] /
[2018-01-04] MEDS: FUROSEMIDE 10 MG/ML 4 ML VIAL IV SCH (20:51)
[2018-01-04] MEDS: WARFARIN 5 MG TAB PO SCH (20:52)
[2018-01-04] MEDS: ATORVASTATIN 40 MG TAB PO SCH (20:52)
[2018-01-04] MEDS: DONEPEZIL 10 MG TAB PO SCH (20:52)
[2018-01-04 21:00] LABS: Glucose,Whole Blood 184 mg/dL (75-99)
[2018-01-05 06:05] LABS: Glucose,Whole Blood 132 mg/dL (75-99)
[2018-01-05] MEDS: INSULIN ASPART 100 UNIT/ML 1 ML 10 ML VIAL SQ SCH ×4 (06:14→20:59)
[2018-01-05 06:24] LABS: Basophils % (A) 0 %; Eosinophils # (A) 0.1 k/uL (0-0.7); Eosinophils % (A) 2 %; HCT 43.6 % (39.0-53.0); HGB 13.5 gm/dL (13.0-17.5); Hypochromasia Slight; Lymphocytes # (A) 1.4 k/uL (1.0-4.8); Lymphocytes % (A) 21 %; MCHC 31.1 g/dL (31.0-37.0); MCV 90.1 fL (80.0-100.0); Mean Platelet Volume 7.5; Monocytes # (A) 0.6 k/uL (0-1.0); Monocytes % (A) 9 %; Neutrophils # (A) 4.2 k/uL (1.3-7.7); Neutrophils % (A) 64 %; Platelet Count 233 k/uL (150-450); RBC 4.83 m/uL (4.30-5.90); RDW 14.8 % (11.5-15.5); WBC 6.6 k/uL (3.8-10.6)
[2018-01-05] MEDS: CARBIDOPA PEG/G-TUBE SCH (06:30)
[2018-01-05] MEDS: LEVODOPA PEG/G-TUBE SCH (06:30)
[2018-01-05] MEDS: metFORMIN 500 MG TAB PO SCH ×2 (06:30→17:25)
[2018-01-05 06:35] LABS: Anion Gap 12 mmol/L; Blood Urea Nitrogen 23 mg/dL (9-20); Calcium 9.6 mg/dL (8.4-10.2); Carbon Dioxide 29 mmol/L (22-30); Chloride 101 mmol/L (98-107); Glucose 127 mg/dL (74-99); Magnesium 1.5 mg/dL (1.6-2.3); Potassium 3.8 mmol/L (3.5-5.1); Sodium 142 mmol/L (137-145)
[2018-01-05 06:43] LABS: INR 1.8 (<1.2); Prothrombin Time 16.6 sec (9.0-12.0)
[2018-01-05] MEDS: IPRATROPIUM-ALBUTEROL 3 ML NEB INHALATION SCH ×4 (07:47→22:14)
[2018-01-05] MEDS: CLOPIDOGREL 75 MG TAB PO SCH (09:13)
[2018-01-05] MEDS: MAGNESIUM SULFATE-D5W PMX 1 GM in DEXTROSE/WATER 1 100ML.BAG IVPB SCH ×2 (09:13→11:00)
[2018-01-05] MEDS: ENTACAPONE 200 MG TAB PO SCH ×3 (09:13→20:59)
[2018-01-05] MEDS: FAMOTIDINE 20 MG TAB PO SCH ×2 (09:13→20:59)
[2018-01-05] MEDS: ISOSORBIDE MONONITRATE ER 30 MG TAB.ER.24H PO SCH (09:14)
[2018-01-05] MEDS: predniSONE 20 MG TAB PO SCH (09:14)
[2018-01-05] MEDS: LISINOPRIL 10 MG TAB PO SCH (09:14)
[2018-01-05] MEDS: FUROSEMIDE 10 MG/ML 4 ML VIAL IV SCH (09:14)
[2018-01-05 12:06] LABS: Glucose,Whole Blood 202 mg/dL (75-99)
--- NOTE | 2018-01-05 13:30 | P.PN ---
Subjective Progress Note Date: 01/05/18 Mr. Russell is seen and examined today in follow-up with his at the bedside. He has been admitted to the hospital with symptoms of shortness of breath. He has also been wheezing with a productive cough. He is receiving lasix IV BID 40 mg with some improvement in his symptoms per his . Although this was thought to be more pulmonary related with normal proBNP and no clinical signs of heart failure. Pulmonology consult is pending. Labs reviewed today, hgb 13.5, plt 233, INR 1.8, potassium 3.8, magnesium 1.5, cr 1.09. Telemetry tracings reveal atrial fibrillation with controlled ventricular response. Objective - Vital Signs Vital signs: Vital Signs Temp 97.0 F L 01/05/18 08:00 Pulse 52 L 01/05/18 12:13 Resp 20 01/05/18 04:00 BP 121/61 01/05/18 08:00 Pulse Ox 94 L 01/05/18 08:00 Intake & Output 01/04/18 01/05/18 01/05/18 18:59 06:59 18:59 Intake Total 930 720 240 Output Total 100 Balance 830 720 240 Weight 70.5 kg Intake: IV 10 Invasive Line 1 10 Oral 920 720 240 Output: Urine 100 Other: Voiding Method Urinal Bedside Commode Bedside Commode Diaper Urinal Urinal Incontinent Diaper Diaper Incontinent Incontinent # Voids 1 - Exam Blood pressure 121/61 heart rate 54 afebrile GENERAL: Well-appearing, well-nourished and in no acute distress. NECK: Supple without JVD or thyromegaly. LUNGS: Breath sounds clear to auscultation bilaterally. Respiration equal and unlabored. No wheezes, rales or rhonchi. HEART: Irregular rate and rhythm with systolic ejection murmur, no rubs or gallops. S1 and S2 heard. EXTREMITIES: Normal range of motion, no edema. No clubbing or cyanosis. Peripheral pulses intact and strong. - Labs CBC & Chem 7: 01/05/18 05:48 01/05/18 05:48 Labs: Abnormal Lab Results - Last 24 Hours (Table) 01/04/18 01/04/18 01/05/18 Range/Units 17:03 20:58 05:48 PT 16.6 H (9.0-12.0) sec INR 1.8 H (<1.2) BUN (9-20) mg/dL Glucose (74-99) mg/dL POC Glucose (mg/dL) 170 H 184 H (75-99) mg/dL Magnesium (1.6-2.3) mg/dL 01/05/18 01/05/18 01/05/18 Range/Units 05:48 06:01 12:02 PT (9.0-12.0) sec INR (<1.2) BUN 23 H (9-20) mg/dL Glucose 127 H (74-99) mg/dL POC Glucose (mg/dL) 132 H 202 H (75-99) mg/dL Magnesium 1.5 L (1.6-2.3) mg/dL Assessment and Plan Assessment: ASSESSMENT 1. Symptoms of progressively worsening shortness of breath with wheezing and productive cough. Normal proBNP for age and no clinical symptoms of heart failure. 2. History of CAD with prior CABG and stenting of SVG-OM and SVG-diagonal 3. Chronic atrial flutter/fibrillation with controlled ventricular response on termite control representative anticoagulation with coumadin 4. Parkinson's disease 5. Hypomagnesemia, being replaced PLAN Transition to oral diuretics. Continue to replace magnesium per protocol and repeat in the morning tomorrow. Further recommendations to follow based upon clinical course. Nurse Practitioner note has been reviewed, I agree with a documented findings and plan of care. Patient was seen and examined.
--- NOTE | 2018-01-05 13:35 | P.CNPUL ---
History of Present Illness Consult date: 01/05/18 Reason for consult: dyspnea, cough, COPD, abnormal CXR/CT, other Chief complaint: Intermittent shortness of breath/cough/chest congestion History of present illness: Consult dated 01/05/2018 77-year-old male who I'm asked to see because of intermittent shortness breath chest congestion and cough. He apparently was seeing his primary care provider. That person, is Castro Norman who is a nurse practitioner's [facility] certified ophthalmic assistant up in the [place] area. The patient was being seen by his primary care provider and the patient was sent to laboratory for a PT/INR blood draw. He apparently was noted to have bradycardia, and the patient was initially then sent to the [place] emergency room and subsequent retransfer down here to [facility]. I'm asked to see him because the patient has intermittent shortness of breath chest congestion and cough which is been going on for about 6 months. This is according to the . The patient himself cannot really give much of a history. He does not bring up any phlegm when he coughs. Doesn't occur all the time. Seems to be worse at nighttime. He's gotsignificant history of lung disease. Lifelong nonsmoker. Was exposed to smoke when he was younger. No history of any emphysema or chronic bronchitis. No history of asthma. Recently given an inhaler by his primary care provider. Has not seen a lung doctor in the past. is not sure what triggers her shortness of breath cough or chest congestion. It does seem to occur more commonly at nighttime. Cardiology is seeing the patient don' t believe it's a new cardiac issue. A chest x-ray did reveal evidence of "COPD ". In addition, the chest x-ray was read as showing possible mild interstitial edema. BNP was only modestly elevated. The patient is currently not having any issues with his breathing and his myself and the patient her on the same room with the same time. Review of Systems Review of system, according to the includes intermittent shortness of breath chest congestion and cough. The cough is nonproductive. Apparently also , there is intermittent and wheezing according to the . This came out after the fact. Past Medical History Past Medical History: Atrial Fibrillation, Coronary Artery Disease (CAD), Cancer , CVA/TIA, Diabetes Mellitus, GERD/Reflux, Hypertension, Musculoskeletal Disorder, Neurologic Disorder, Osteoarthritis (OA), Skin Disorder, Sleep Apnea/ CPAP/BIPAP, Syncope Additional Past Medical History / Comment(s): Stress test 2 weeks ago negative, parkinson's disease with levadopa pump, NIDDM type II, "leaky" heart valve, recently having some difficulty with swallowing-ENT thought due to breathing difficulties-pt has had esophageal dilations in the past, SOB past couple months worse lately, TIA in 2003, skin cancer with multiple removals, AINSLEY with CPAP used in the past, diverticular disease, benign colon polyps, arthritis bilateral knees and hips, UTIs, syncopal episodes. History of Any Multi-Drug Resistant Organisms: None Reported Past Surgical History: Coronary Bypass/CABG, Heart Catheterization, Joint Replacement, Orthopedic Surgery Additional Past Surgical History / Comment(s): 5vessel bypass 1988 at [facility] in [place]; 2008 cardiac cath tx medically, bilateral knee replacements with L knee revision, bilateral rotator cuff repair, colonoscopy with benign polypectomy, EGD with dilation, bilateral cataract removal with lens implants., Past Anesthesia/Blood Transfusion Reactions: No Reported Reaction Past Psychological History: No Psychological Hx Reported Additional Psychological History / Comment(s): Pt resides with his spouse. He usually gets around in an electric scooter. On good days, he can use a walker. He has a private hire nurse 2 times a week. His spouse and daughters assist him on the other days. Spouse drives him to appts. Smoking Status: Never smoker Past Alcohol Use History: Occasional Past Drug Use History: None Reported - Past Family History Father Family Medical History: Myocardial Infarction (PR) Additional Family Medical History / Comment(s): FATHER PASSED AT 38 YR. Medications and Allergies Home Medications Medication Instructions Recorded Confirmed Type Entacapone [Comtan] 200 mg PO TID 05/04/14 01/03/18 History Isosorbide Mononitrate ER [Imdur] 30 mg PO QAM 05/04/14 01/03/18 History Ranitidine HCl [Zantac] 150 mg PO BID 05/04/14 01/02/18 History Warfarin [Coumadin] 5 mg PO HS 05/04/14 01/03/18 History metFORMIN HCL 1,000 mg PO BID 05/04/14 01/03/18 History Cholecalciferol [Vitamin D3] 5,000 unit PO DAILY 09/10/17 01/03/18 History Donepezil [Aricept] 10 mg PO HS 09/10/17 01/03/18 History Lisinopril [Prinivil] 10 mg PO DAILY 09/10/17 01/03/18 History predniSONE 20 mg PO Q48H 09/10/17 01/03/18 History Nitroglycerin Sl Tabs [Nitrostat] 0.4 mg SUBLINGUAL Q5M PRN tab 09/13/17 Rx Carbidopa/Levodopa [Duopa 4.63 1 dose PEG/G-TUBE DAILY@0500 09/16/17 01/02/18 Rx Mg-20 Mg/Ml Susp] Albuterol Nebulized [Ventolin 2.5 mg INHALATION RT-TID 01/03/18 01/03/18 History Nebulized] Aspirin 81 mg PO MOWEFR 01/03/18 01/03/18 History Black Seed Oil 1 cap PO BID 01/03/18 01/03/18 History Furosemide [Lasix] 40 mg PO DAILY 01/03/18 01/03/18 History Rhine-3 Fatty Acids/Fish Oil [Fish 1 cap PO HS 01/03/18 01/03/18 History Oil 1,000 mg Softgel] Ubidecarenone [Co Q-10] 300 mg PO DAILY 01/03/18 01/03/18 History Vitamin B Complex 1 cap PO DAILY 01/03/18 01/03/18 History Allergies Allergy/AdvReac Type Severity Reaction Status Date / Time diphenhydramine HCl AdvReac Hallucinati Verified 01/02/18 19:54 [From Benadryl] ons Physical Exam Osteopathic Statement: *. No significant issues noted on an osteopathic structural exam other than those noted in the History and Physical/Consult. Vitals: Vital Signs Temp Pulse Pulse Resp BP Pulse Ox 01/05/18 12:13 52 L 01/05/18 11:58 52 L 01/05/18 08:00 97.0 F L 54 L 121/61 94 L 01/05/18 07:56 56 L 01/05/18 07:47 56 L 01/05/18 04:00 97.4 F L 54 L 20 140/73 96 01/05/18 00:00 97.2 F L 64 18 144/74 94 L 01/04/18 20:00 97 F L 54 L 18 113/57 94 L 01/04/18 19:30 60 01/04/18 19:18 58 L 01/04/18 16:00 50 L 16 01/04/18 15:58 97.1 F L 50 L 16 137/69 93 L 01/04/18 15:29 54 L 01/04/18 15:18 58 L Intake and Output 01/04/18 01/05/18 01/05/18 22:59 06:59 14:59 Intake Total 250 720 240 Output Total 100 Balance 150 720 240 Intake: IV 10 Invasive Line 1 10 Oral 240 720 240 Output: Urine 100 Other: Voiding Method Bedside Commode Bedside Commode Bedside Commode Urinal Urinal Urinal Diaper Diaper Diaper Incontinent Incontinent Incontinent # Voids 1 Weight 70.5 kg No acute distress, oriented 3. No respiratory distress at the current time. No wheezing cough or any other abnormality noted in the lungs HEENT examination is grossly unremarkable. Mucous membranes are moist. No oral lesions. Neck supple. Full range of motion. No adenopathy thyromegaly or neck vein distention. Cardiovascular examination reveals regular rhythm rate. S1-S2 normal. No S3 or S4. No discernible murmur noted. Lungs reveal clear breath sounds. Her sounds are equal bilaterally. No adventitious lung sounds including wheezes rhonchi or crackles. Abdomen soft bowel sounds are heard. No masses or tenderness. Extremities are intact. No cyanosis clubbing or edema. Skin is without rash or lesion. Neurologic examination is brief but nonfocal. Results - Laboratory Findings CBC and BMP: 01/05/18 05:48 01/05/18 05:48 PT/INR, D-dimer PT 16.6 sec (9.0-12.0) H 01/05/18 05:48 INR 1.8 (<1.2) H 01/05/18 05:48 Abnormal lab findings: Abnormal Labs 01/02/18 01/02/18 01/03/18 21:28 21:28 04:00 Hgb MCHC PT INR BUN Glucose 149 H POC Glucose (mg/dL) Hemoglobin A1c Magnesium ALT 15 L CK-MB (CK-2) 3.0 H* Troponin I 0.061 H* 0.056 H* 01/03/18 01/03/18 01/03/18 04:00 04:08 05:54 Hgb MCHC PT 18.0 H INR 2.0 H BUN Glucose POC Glucose (mg/dL) 147 H Hemoglobin A1c 7.8 H Magnesium ALT CK-MB (CK-2) Troponin I 01/03/18 01/03/18 01/03/18 09:58 11:49 16:52 Hgb MCHC PT INR BUN Glucose POC Glucose (mg/dL) 241 H 224 H Hemoglobin A1c Magnesium ALT CK-MB (CK-2) Troponin I 0.053 H* 01/03/18 01/04/18 01/04/18 20:52 05:59 06:03 Hgb MCHC PT 14.1 H INR 1.5 H BUN Glucose POC Glucose (mg/dL) 141 H 127 H Hemoglobin A1c Magnesium ALT CK-MB (CK-2) Troponin I 01/04/18 01/04/18 01/04/18 06:03 06:03 11:42 Hgb 12.6 L MCHC 30.3 L PT INR BUN 26 H Glucose 123 H POC Glucose (mg/dL) 246 H Hemoglobin A1c Magnesium 1.5 L ALT CK-MB (CK-2) Troponin I 01/04/18 01/04/18 01/05/18 17:03 20:58 05:48 Hgb MCHC PT 16.6 H INR 1.8 H BUN Glucose POC Glucose (mg/dL) 170 H 184 H Hemoglobin A1c Magnesium ALT CK-MB (CK-2) Troponin I 01/05/18 01/05/18 01/05/18 05:48 06:01 12:02 Hgb MCHC PT INR BUN 23 H Glucose 127 H POC Glucose (mg/dL) 132 H 202 H Hemoglobin A1c Magnesium 1.5 L ALT CK-MB (CK-2) Troponin I - Diagnostic Findings Chest x-ray: image reviewed (Labs x-rays a medications are all reviewed.) Assessment and Plan Assessment: Assessment Intermittent shortness of breath cough wheezing and chest congestion, of unclear etiology. The patient's a lifelong nonsmoker. This could represent new onset asthma. Symptoms have been present for about 6 months. Worse at nighttime. History of atrial fibrillation CAD, status post 5 vessel bypass grafting History of CVA Diabetes mellitus Gastroesophageal reflux disease Hypertension by history DJD History of sleep apnea syndrome History of Parkinson's disease Vague history of dysphasia with previous esophageal dilatations, with possible intermittent aspiration causing the patient's respiratory complaints. Multiple other medical problems and comorbidities Plan: Plan dated 01/05/2018 The patient will need a thorough outpatient evaluation. Lung disease needs to be ruled out. Since is a lifelong nonsmoker, and since his complaints include shortness of breath cough wheezing and chest congestion, asthma, has to be a consideration. A methacholine challenge test would be in order. If the methacholine challenge test is negative, another possible explanation for the patient's intermittent respiratory complaints might include esophageal stricture with intermittent aspiration. The patient apparently does have a history of intermittent dysphasia and previous esophageal dilatations. Additional recommendations and suggestions are forthcoming. Prognosis is guarded. Time with Patient: Greater than 30
--- NOTE | 2018-01-05 16:21 | PN ---
PROGRESS NOTE DATE OF SERVICE: 01/05/2018 This 77-year-old gentleman who was admitted with shortness of breath was evaluated for CHF acute exacerbation. The patient also had bradycardia also. Dr. Conde is also being consulted from the pulmonary point of view. The exact etiology is unclear at this time. The possibility of lung pathology needs to be ruled out by Dr. Conde. Outpatient evaluation including PFT testing and methacholine challenge test is also being recommended at this time. PAST MEDICAL HISTORY: Reviewed. REVIEW OF SYSTEMS: CARDIOVASCULAR: No angina. RESPIRATORY: As mentioned earlier. GI: As mentioned earlier. : As mentioned. NERVOUS SYSTEM: No numbness or weakness. CURRENT MEDICATIONS: Reviewed and include: 1. DuoNeb q.i.d. and p.r.n. 2. Lipitor 40 mg q.h.s. 3. Symbicort 160/4.5, 2 puffs b.i.d. 4. Plavix 75 mg daily. 5. Aricept 10 mg q.h.s. 6. Comtan 200 mg p.o. t.i.d. 7. Pepcid 20 mg p.o. b.i.d. 8. Lasix 40 mg p.o. daily. 9. NovoLog scale. 10.Imdur 30 mg q.a.m. 11.Zestril 10 mg. 12.Glucophage 1000 mg p.o. b.i.d. 13.Narcan 0.2 q.2h p.r.n. 14.Nitrostat 0.4 p.r.n. 15.Duopa pump per PEG tube. 16.Prednisone 20 mg p.o. q.48h. 17.Coumadin 5 mg p.o. daily. EXAMINATION: Alert and oriented x2. Pulse 53, blood pressure 105/53, respirations 20, temperature 97 degrees, pulse ox 94% room air. HEENT: Conjunctivae normal. NECK: No jugular venous distention. CARDIOVASCULAR: S1, S2 muffled. RESPIRATORY: Breath sounds diminished in the bases. A few scattered rhonchi and crackles. ABDOMEN: Soft, nontender. No mass palpable. LEGS: No edema. NERVOUS SYSTEM: No focal deficits. LABS: CBC within normal limits. INR is 1.8. Troponins are noted. BMP noted. ASSESSMENT: 1. Shortness of breath with possible congestive heart failure acute exacerbation with acute on chronic diastolic dysfunction. 2. Rule out lung disease. 3. Atrial flutter with varying block with bradycardia. 4. Dysphagia. 5. Parkinson disease with gait dysfunction. 6. Status post J-tube for levodopa carbidopa infusion pump. 7. Troponin 0.06 indeterminate. 8. History of coronary artery disease, CABG. 9. History of cerebrovascular accident, transient ischemic attack history. 10.History of diabetes mellitus type 2. 11.History of gastroesophageal reflux disease. RECOMMENDATIONS AND DISCUSSION: I recommend to continue current management, continue monitoring and symptomatic treatment. Otherwise at this time I would recommend to continue the current medications. Follow closely with Dr. Conde. Continue with the diuretics and other medications and prognosis guarded because of multiple complex medical issues. Further recommendations to follow. See orders for details. Cardiology and Pulmonology notes appreciated. Discussed at length with the family. Increase ambulation. MMODL / IJN: [id number] /
[2018-01-05 17:17] LABS: Glucose,Whole Blood 253 mg/dL (75-99)
[2018-01-05] MEDS: MAGNESIUM OXIDE 400 MG TAB PO SCH (17:25)
[2018-01-05 20:59] LABS: Glucose,Whole Blood 170 mg/dL (75-99)
[2018-01-05] MEDS: WARFARIN 5 MG TAB PO SCH (20:59)
[2018-01-05] MEDS: ATORVASTATIN 40 MG TAB PO SCH (20:59)
[2018-01-05] MEDS: DONEPEZIL 10 MG TAB PO SCH (20:59)
[2018-01-05] MEDS: SYMBICORT 160-4.5 MCG INHALER INHALATION SCH (22:14)
[2018-01-06 05:50] LABS: Glucose,Whole Blood 131 mg/dL (75-99)
[2018-01-06] MEDS: INSULIN ASPART 100 UNIT/ML 1 ML 10 ML VIAL SQ SCH ×2 (05:56→11:44)
[2018-01-06 06:15] LABS: Basophils % (A) 0 %; Eosinophils # (A) 0.2 k/uL (0-0.7); Eosinophils % (A) 2 %; HCT 44.6 % (39.0-53.0); HGB 13.9 gm/dL (13.0-17.5); Hypochromasia Slight; Lymphocytes # (A) 1.5 k/uL (1.0-4.8); Lymphocytes % (A) 19 %; MCH 28.3 pg (25.0-35.0); MCHC 31.3 g/dL (31.0-37.0); MCV 90.6 fL (80.0-100.0); Mean Platelet Volume 7.4; Monocytes # (A) 0.7 k/uL (0-1.0); Monocytes % (A) 9 %; Neutrophils # (A) 5.6 k/uL (1.3-7.7); Neutrophils % (A) 68 %; Platelet Count 244 k/uL (150-450); RBC 4.92 m/uL (4.30-5.90); RDW 14.8 % (11.5-15.5); WBC 8.2 k/uL (3.8-10.6)
[2018-01-06 06:20] LABS: INR 2.1 (<1.2); Prothrombin Time 19.4 sec (9.0-12.0)
[2018-01-06 06:31] LABS: Anion Gap 12 mmol/L; Blood Urea Nitrogen 34 mg/dL (9-20); Calcium 9.8 mg/dL (8.4-10.2); Carbon Dioxide 27 mmol/L (22-30); Chloride 103 mmol/L (98-107); Glucose 129 mg/dL (74-99); Magnesium 1.9 mg/dL (1.6-2.3); Potassium 3.8 mmol/L (3.5-5.1); Sodium 142 mmol/L (137-145)
[2018-01-06] MEDS: metFORMIN 500 MG TAB PO SCH (06:31)
[2018-01-06] MEDS: LEVODOPA PEG/G-TUBE SCH (06:56)
[2018-01-06] MEDS: CARBIDOPA PEG/G-TUBE SCH (06:56)
[2018-01-06] MEDS: ENTACAPONE 200 MG TAB PO SCH (08:13)
[2018-01-06] MEDS: CLOPIDOGREL 75 MG TAB PO SCH (08:13)
[2018-01-06] MEDS: FAMOTIDINE 20 MG TAB PO SCH (08:14)
[2018-01-06] MEDS: LISINOPRIL 10 MG TAB PO SCH (08:15)
[2018-01-06] MEDS: ISOSORBIDE MONONITRATE ER 30 MG TAB.ER.24H PO SCH (08:15)
[2018-01-06] MEDS: MAGNESIUM OXIDE 400 MG TAB PO SCH (08:16)
[2018-01-06] MEDS: IPRATROPIUM-ALBUTEROL 3 ML NEB INHALATION SCH ×2 (08:46→11:36)
[2018-01-06] MEDS: SYMBICORT 160-4.5 MCG INHALER INHALATION SCH (08:46)
[2018-01-06] MEDS ORDERED: FUROSEMIDE 40 MG TAB PO SCH (09:00)
[2018-01-06 11:16] VITALS: BP 116/57; RESP 18; TEMP 96.9
[2018-01-06 11:45] LABS: Glucose,Whole Blood 138 mg/dL (75-99)
[2018-01-06 11:52] VITALS: PULSE 60
--- NOTE | 2018-01-06 13:24 | P.PN ---
Subjective Progress Note Date: 01/06/18 Principal diagnosis: Cough wheezing shortness of breath Progress note dated 01/06/2018 This is a 77-year-old male who I saw yesterday in consultation. He came with complaints of intermittent shortness of breath cough wheezing and chest congestion. I thought the etiology of this could relate to new onset adult type asthma versus esophageal stricture with aspiration. Anyway he is being discharged today. I told I would like to see him in the office for follow-up. At the very least he needs a methacholine challenge test. He does have a history of atrial fibrillation CAD status post 5 vessel bypass grafting CVA diabetes and gastroesophageal reflux disease hypertension DJD sleep apnea syndrome Parkinson's disease and dysphagia with esophageal stricture. Anyway, the patient will follow with me in the office. A methacholine challenge test will be done. Objective - Vital Signs Vital signs: Vital Signs Temp 96.9 F L 01/06/18 11:16 Pulse 60 01/06/18 11:51 Resp 18 01/06/18 11:16 BP 116/57 01/06/18 11:16 Pulse Ox 94 L 01/06/18 11:16 Intake & Output 01/05/18 01/06/18 01/06/18 18:59 06:59 18:59 Intake Total 800 120 Balance 800 120 Intake: Intake, IV Titration 200 Amount Magnesium Sulfate-D5w Pmx 200 1 gm In Dextrose/Water 1 100ml.bag @ 100 mls/hr IVPB Q1H TERE Rx#: [id number] Oral 600 120 Other: Voiding Method Bedside Commode Bedside Commode Bedside Commode Urinal Urinal Urinal Diaper Diaper Diaper Incontinent Incontinent Incontinent # Voids 1 - Exam No acute distress, oriented 3. HEENT examination is grossly unremarkable. Mucous membranes are moist. No oral lesions. Neck supple. Full range of motion. No adenopathy thyromegaly or neck vein distention. Cardiovascular examination reveals regular rhythm rate. S1-S2 normal. No S3 or S4. No discernible murmur noted. Lungs reveal a few scattered rhonchi. There is also a few scattered mild wheezes. Slight prolongation on forced maneuver. No crackles. Breath sounds are equal.. Abdomen soft bowel sounds are heard. No masses or tenderness. Extremities are intact. No cyanosis clubbing or edema. Skin is without rash or lesion. Neurologic examination is brief but nonfocal. - Labs CBC & Chem 7: 01/06/18 05:50 01/06/18 05:50 Labs: Abnormal Lab Results - Last 24 Hours (Table) 01/05/18 01/05/18 01/06/18 Range/Units 16:40 20:56 05:49 PT (9.0-12.0) sec INR (<1.2) BUN (9-20) mg/dL Glucose (74-99) mg/dL POC Glucose (mg/dL) 253 H 170 H 131 H (75-99) mg/dL 01/06/18 01/06/18 01/06/18 Range/Units 05:50 05:50 11:43 PT 19.4 H (9.0-12.0) sec INR 2.1 H (<1.2) BUN 34 H (9-20) mg/dL Glucose 129 H (74-99) mg/dL POC Glucose (mg/dL) 138 H (75-99) mg/dL Assessment and Plan Assessment: Assessment Intermittent shortness of breath cough wheezing and chest congestion, of unclear etiology. The patient's a lifelong nonsmoker. This could represent new onset asthma. Symptoms have been present for about 6 months. Worse at nighttime. History of atrial fibrillation CAD, status post 5 vessel bypass grafting History of CVA Diabetes mellitus Gastroesophageal reflux disease Hypertension by history DJD History of sleep apnea syndrome History of Parkinson's disease Vague history of dysphasia with previous esophageal dilatations, with possible intermittent aspiration causing the patient's respiratory complaints. Multiple other medical problems and comorbidities Plan: Plan dated 01/05/2018 The patient will need a thorough outpatient evaluation. Lung disease needs to be ruled out. Since is a lifelong nonsmoker, and since his complaints include shortness of breath cough wheezing and chest congestion, asthma, has to be a consideration. A methacholine challenge test would be in order. If the methacholine challenge test is negative, another possible explanation for the patient's intermittent respiratory complaints might include esophageal stricture with intermittent aspiration. The patient apparently does have a history of intermittent dysphasia and previous esophageal dilatations. Additional recommendations and suggestions are forthcoming. Prognosis is guarded. Plan dated 11/05/2018 I did explain to the , that the patient may have new onset adult type asthma as an explanation for his respiratory complaints. Alternatively, the patient could have esophageal stricture with microaspiration in the same respiratory complaints. He apparently recently had a barium swallow or a modified barium swallow. Results of those are not known. I'll see him in the porion office initially with a methacholine challenge test. Additional recommendations and suggestions are forthcoming. Time with Patient: Less than 30
--- NOTE | 2018-01-06 15:53 | P.PN ---
Subjective Progress Note Date: 01/06/18 This is a pleasant 77-year-old gentleman who follows with Dr. Hilliard in the office. He has history of Parkinson's, diabetes, dyslipidemia, CAD with prior CABG with most recent cardiac catheterization in August 2017 with PTCA of SVG to diagnose branch and stent placement to SVG to the OM. He was sent to the emergency department at [facility] by his primary care provider presenting for a blood draw and being noticeably short of breath. The patient is quite drowsy and the is answering most questions. According to the , patient has been having worsening shortness of breath over the last month with wheezing and a cough with clear sputum. He has also been having difficulty swallowing and has been evaluated by Osmar moreno to chop his food intake smaller bites. The denies episodes of PND and is unclear whether the patient is having orthopnea as he's been sleeping in an inclined hospital bed since August 2016. chest x-ray showed cardiomegaly with no overt pulmonary vascular congestion, focal pneumonia, gross pleural effusion or pneumothorax with minimal density at the lung base most likely representing atelectasis. EKG showed atrial flutter with bradycardia. Laboratory values showed a magnesium of 1.6 which was replaced, BUN of 18, creatinine 1.0. Troponins came back at 0.061, 0.056 and 0.053. Upon examination, patient is resting comfortably in bed with head of bed flat. He does not appear to be in any acute distress. He is quite drowsy, the feels this is related to receiving his Parkinson's medication later than usual. Per the , patient has not had complaints of chest discomfort, dizziness, lightheadedness, he's had no syncope and has no lower extremity edema. 01/06/2018 Patient seen and examined this morning, feeling better overall.it was felt that the patient may have new onset adult type asthma. Arrangements are mainly for discharge home today. Objective - Vital Signs Vital signs: Vital Signs Temp 96.9 F L 01/06/18 11:16 Pulse 60 01/06/18 11:51 Resp 18 01/06/18 11:16 BP 116/57 01/06/18 11:16 Pulse Ox 94 L 01/06/18 11:16 Intake & Output 01/05/18 01/06/18 01/06/18 18:59 06:59 18:59 Intake Total 800 120 Balance 800 120 Intake: Intake, IV Titration 200 Amount Magnesium Sulfate-D5w Pmx 200 1 gm In Dextrose/Water 1 100ml.bag @ 100 mls/hr IVPB Q1H [facility] Rx#: [id number] Oral 600 120 Other: Voiding Method Bedside Commode Bedside Commode Bedside Commode Urinal Urinal Urinal Diaper Diaper Diaper Incontinent Incontinent Incontinent # Voids 1 - Exam PHYSICAL EXAMINATION: HEENT: [Head is atraumatic, normocephalic. Pupils equal, round. Neck is supple. There is no elevated jugular venous pressure.] HEART EXAMINATION: [Heart S1, S2 normal. No murmur or gallop heard.] CHEST EXAMINATION:lungs reveal fine scattered wheezing throughout. ABDOMEN: [ Soft, nontender. Bowel sounds are heard. No organomegaly noted]. EXTREMITIES:[ 2+ peripheral pulses with no evidence of peripheral edema and no calf tenderness noted]. NEUROLOGIC [patient is awake, alert and oriented -3.] . - Labs CBC & Chem 7: 01/06/18 05:50 01/06/18 05:50 Labs: Abnormal Lab Results - Last 24 Hours (Table) 01/05/18 01/05/18 01/06/18 Range/Units 16:40 20:56 05:49 PT (9.0-12.0) sec INR (<1.2) BUN (9-20) mg/dL Glucose (74-99) mg/dL POC Glucose (mg/dL) 253 H 170 H 131 H (75-99) mg/dL 01/06/18 01/06/18 01/06/18 Range/Units 05:50 05:50 11:43 PT 19.4 H (9.0-12.0) sec INR 2.1 H (<1.2) BUN 34 H (9-20) mg/dL Glucose 129 H (74-99) mg/dL POC Glucose (mg/dL) 138 H (75-99) mg/dL Assessment and Plan Plan: Assessment: #1 symptoms of progressively worsening shortness of breath with wheezing and productive cough with normal BNP for age and no failure per Xray, Likely adult onset asthma #2 history of CAD with prior CABG and stenting of vein graft to the OM and PTCA of the vein graft to the diagonal #3 chronic atrial flutter, with slow ventricular response, anticoagulated on Coumadin #4 Parkinson's disease Plan Cardiology's perspective, patient may be able to be discharged home, we'll make a follow-up appointment in the office post discharge. DNP note has been reviewed, I agree with a documented findings and plan of care. Patient was seen and examined.
--- NOTE | 2018-01-07 07:52 | DS ---
DISCHARGE SUMMARY FINAL DIAGNOSES: 1. Shortness of breath with possible congestive heart failure exacerbation acute on chronic diastolic dysfunction. 2. Rule out lung disease or asthmatic component. 3. Atrial flutter with varying block with bradycardia. 4. Dysphagia. 5. Parkinson's disease with gait dysfunction. 6. Status post J-tube for levodopa carbidopa infusion pump. 7. Troponin 0.06 indeterminate. 8. History of coronary artery disease/coronary artery bypass grafting. 9. History of cerebrovascular accident/transient ischemic attack. 10.History of diabetes type 2. 11.History of gastroesophageal reflux disease. DISCHARGE DISPOSITION: The patient being discharged in stable condition with guarded prognosis. TOTAL DISCHARGE TIME: Greater than 35 minutes. Discharged cleared by Cardiology and pulmonology. HISTORY OF PRESENT ILLNESS: This 77-year-old gentleman with past medical history of shortness of breath, multifactorial CHF, treated for CHF but however Dr. Conde saw the patient and recommended outpatient followup regarding pulmonary status and further planning with tests including maybe PFT and methacholine challenge testing. PHYSICAL EXAMINATION: On exam vitals are stable. Cardiovascular system S1, S2. A few rhonchi. Abdomen soft. Central nervous system: No focal deficits. DISCHARGE ADVICE AND MEDICATIONS: 1. Discharge diet is cardiac diet. 2. Activity limited until followup. 3. Follow up with Dr. Norman in 2-3 days. 4. Follow up with Dr. Conde and Dr. Hilliard as advised. MEDICATIONS: 1. Will be albuterol 2.5 q.i.d. p.r.n. 2. Symbicort 160/4.5 2 puffs b.i.d. 3. Carbidopa levodopa as before via pump. 4. Vitamin D3 5000 daily. 5. Plavix 75 mg p.o. daily. 6. Aricept 10 mg q.h.s. 7. Comtan 200 mg p.o. t.i.d. 8. Lasix 40 mg p.o. daily. 9. Albuterol and Atrovent updraft q.i.d. and p.r.n. 10.Imdur ER 30 mg q.a.m. 11.Prinivil 10 mg p.o. daily. 12.Metformin 1000 mg p.o. b.i.d. 13.Nitrostat 0.4 mg p.r.n. 14.[place]-3 fatty acids p.o. q.h.s. 15.Protonix 40 mg p.o. daily. 16.Prednisone 20 mg p.o. q.48h hours. Further tapering in the outpatient setting. 17.Coenzyme Q10 300 mg p.o. daily. 18.Vitamin B complex on p.o. daily. 19.Coumadin 5 mg p.o. q.h.s.. Once again, the patient being discharged in stable condition with guarded prognosis. MMODL / IJN: [id number] / MTDD
== END 2018-01-06 16:43 | disposition home or self-care (01) | DRG 292 ==
LOC: EC 19:45 → 6SEL 21:35
PROVIDERS: ADMIT Hospitalist; ATTEND Hospitalist
DX: I11.0 Hypertensive heart disease with heart failure (principal); I48.92 Unspecified atrial flutter; G20 Parkinson's disease; E83.42 Hypomagnesemia; I48.91 Unspecified atrial fibrillation; R13.10 Dysphagia, unspecified; E11.9 Type 2 diabetes mellitus without complications; E78.5 Hyperlipidemia, unspecified; G47.33 Obstructive sleep apnea (adult) (pediatric); I25.10 Atherosclerotic heart disease of native coronary artery without angina pectoris; I50.33 Acute on chronic diastolic (congestive) heart failure; K21.9 Gastro-esophageal reflux disease without esophagitis; M17.0 Bilateral primary osteoarthritis of knee; J45.909 Unspecified asthma, uncomplicated; Z96.1 Presence of intraocular lens; Z96.653 Presence of artificial knee joint, bilateral; R47.02 Dysphasia; Z79.01 Long term (current) use of anticoagulants; I25.2 Old myocardial infarction; Z79.02 Long term (current) use of antithrombotics/antiplatelets; Z79.82 Long term (current) use of aspirin; Z79.899 Other long term (current) drug therapy; Z82.49 Family history of ischemic heart disease and other diseases of the circulatory system; Z85.828 Personal history of other malignant neoplasm of skin; Z86.010 Personal history of colon polyps; Z86.73 Personal history of transient ischemic attack (TIA), and cerebral infarction without residual deficits; Z95.1 Presence of aortocoronary bypass graft; Z95.5 Presence of coronary angioplasty implant and graft; Z98.41 Cataract extraction status, right eye; Z98.42 Cataract extraction status, left eye; Z79.52 Long term (current) use of systemic steroids
CPT/HCPCS: 36415; 71046; 80048; 80053; 82550; 82553; 83036; 83735; 83880; 84484; 85025; 85610; 93005; 93306; 94640; 94760; 99285